=== PATIENT | female | born 1935 | race Caucasian/White ===

== ENCOUNTER 2016-09-30 11:05 | Inpatient (IN) | payer OTHER ==
[2016-09-30 11:15] VITALS: BMI 25.2
--- NOTE | 2016-09-30 11:27 | DR.GENAD ---
HPI - HPI Comment HPI Comment: PATIENT WENT TO HER KITCHEN AND ALMOST FAINTED.. SHE IA WEAK AND DIZZINESS. TOOK MORNING MEDS. - Complaint/Symptoms Chief Complaint Doctors Comments: WEAKNESS, DIZZINESS, NEAR SYNCOPAL EPISODES SHORTLY BEFORE COMING. - Nurses notes reviewed Nurses Notes Review: Yes - Source History Provided: Patient, Family Member, EMS - Mode of Arrival Mode of Arrival: Stretcher - Timing Came on: Suddenly - Duration Duration: Constant Duration: Minutes - Severity Severity: Moderate PMH - PMH Past Medical History: Anemia, Arthritis, Coronary Artery Disease, Diabetes, Hypertension, Hypothyroidism Past Surgical History: Yes Surgical History: Angioplasty/Stents, Appendectomy, Bowel Resection, Cholecystectomy - Family History Family Medical History: Diabetes Mellitus, [place], Coronary Artery Disease, Heart Failure, Hypertension - Social History Do you use any recreational Drugs:: No ROS - Review of Systems Constitutional: Weakness, Fatigue. negative: Chills, Fever Eyes: No Symptoms Reported ENTM: No Symptoms Reported Respiratoy: No Symptoms Reported Cardiovascular: No Symptoms Reported, Syncope (NEAR SYNCOPE) Gastrointestinal/Abdominal: No Symptoms Reported Genitourinary: No Symptoms Reported Neurological: No Symptoms Reported, Weakness, Dizziness. negative: Headache Musculoskeletal: Back Pain, Muscle Pain Integumentary: Dryness Hematologic/Lymphatic: No Symptoms Reported Endocrine: No Symptoms Reported All Other Systems: Reviewed and Negative PE - Vital Signs Vitals: Temperature 97.6 F Pulse Rate 82 Respiratory Rate 18 Blood Pressure [Left Arm] 141/69 Blood Pressure [Right Arm] 200/90 Blood Pressure 103/59 O2 Sat by Pulse Oximetry 98 - General Limitations: No Limitations General Appearance: Alert - Head Head Exam: Normal Inspection - Eyes Eye exam: Normal Appearance - ENT ENT Exam: Normal External Ear Exam External Ear Exam: Normal External Inspection TM/Canal Exam: Bilateral Normal Nose Exam: Normal Nose Exam Mouth Exam: Normal Inspection Throat Exam: Normal Inspection - Neck Neck Exam: Trachea Midline - Chest Chest Inspection: Symmetric Chest Wall Rise - Respiratory Respiratory Exam: Normal Lung Sounds Bilat Respiratory Exam: Bilateral Rhonchi, Lower Rhonchi - Cardiovascular Cardiovascular Exam: Regular Rate, Normal Rhythm, Normal Heart Sounds - Abdominal Exam Abdominal Exam: Normal Bowel Sounds, Soft. negative: Tenderness - Extremities Extremities Exam: Normal Inspection - Back Back Exam: Normal Inspection - Neurologic Neurological Exam: Alert, Oriented X3, CN II-XII Intact, Reflexes Normal. negative: Motor Sensory Deficit - Psychiatric Psychiatric Exam: Anxious - Skin Skin Exam: Normal Color MDM - Additional Information Additional Information Obtained From: Family - Differential Diagnosis Differential Diagnosis: ORTHOSTATIC HYPOTENSION, DEHYDRATION Course - Treatment Treatment: SEE ORDERS - Education/Counseling Education/Counseling: Patient, Family, Education Educated On: Treatment, Diagnosis, Needs for Follow Up ROR - Labs Reviewed Laboratory Results Reviewed?: Yes Result Diagrams: 10/01/16 05:23 10/01/16 05:23 - XRAY XRAY Interpreted by: Radiologist XRAY Findings: REPORT DISCUSS WITH PATIENT AND HER SON - EKG Rhythm: NSR (EKG NOTED) - Diagnosis Discharge Problem: Orthostatic hypotension, Dehydration - Discharge Plan Disposition: ADMITTED INPATIENT Condition: Stable - Follow ups/Referrals - Instructions
[2016-09-30] MEDS ORDERED: NS 1000 ML 1,000 ML ONE (11:29)
[2016-09-30] MEDS ORDERED: NS 1000 ML 1,000 ML IV ONE (11:32)
[2016-09-30 11:54] LABS: BASOPHILS % (AUTO) 0.4 % (0.2-1.0); EOSINOPHILS # (AUTO) 0.1 x10^3/uL (0.0-0.2); HEMATOCRIT 32.6 % (36.0-47.0); HEMOGLOBIN 10.8 g/dL (12.0-16.0); LYMPHOCYTES # (AUTO) 1.4 X10^3/uL (1.3-2.9); LYMPHOCYTES % (AUTO) 25.1 % (21.0-51.0); MEAN CORPUSCULAR HEMOGLOBIN 28.3 pg (27.0-34.0); MEAN CORPUSCULAR HGB CONC 33.2 g/dL (33.0-35.0); MEAN CORPUSCULAR VOLUME 85.3 fL (80.0-100.0); MEAN PLATELET VOLUME 9.4 fL (7.4-11.0); MONOCYTES # (AUTO) 0.4 x10^3/uL (0.3-0.8); MONOCYTES % (AUTO) 7.2 % (0.0-13.0); NEUTROPHILS # (AUTO) 3.8 x10^3/uL (2.2-4.8); NEUTROPHILS % (AUTO) 66.3 % (42.0-75.0); PLATELET COUNT 294 X10^3/uL (150.0-450.0); RED BLOOD COUNT 3.82 X10^6/uL (3.5-5.4); RED CELL DISTRIBUTION WIDTH 14.6 % (11.6-16.5); WHITE BLOOD COUNT 5.7 X10^3/uL (3.6-10.0)
[2016-09-30] MEDS ORDERED: TYLENOL 325 MG TAB PO ONE (12:02)
--- NOTE | 2016-09-30 12:26 | CT ---
HEAD CT WITHOUT IV CONTRAST CLINICAL INDICATION: Generalized weakness TECHNIQUE: Axial CT images from skull base to vertex without IV contrast.Dose reduction techniques i ncluding Automated Exposure Control (AEC) and adjustment of mA and kV were utlized. COMPARISON: None FINDINGS: Focal encephalomalacia in the left occipital region similar prior . Diffuse patchy and confluent whi te matter hypoattenuation with associated volume loss. There is no evidence of acute infarction, int racranial hemorrhage, mass or mass effect, or abnormal extra-axial collection. The density of the la rger dural venous sinuses is normal. Age-related, ex-vacuo dilatation of the ventricles and sulci. T he skull base and calvarium are normal. The included paranasal sinuses and mastoid air cells are pre dominantly clear. IMPRESSION: 1. No acute intracranial abnormality. If there is definite, focal, acute neurologic deficit, MRI wit h diffusion-weighted imaging would be more sensitive for detection of acute stroke. 2. Chronic microangiopathic changes and ex vacuo dilatation of the ventricles and sulci. Focal encep halomalacia in the left occipital lobe is unchanged from prior. Reported By:
[2016-09-30 12:42] LABS: BLOOD UREA NITROGEN 48 mg/dL (7-18); CALCIUM 8.9 mg/dL (8.5-10.1); CARBON DIOXIDE 22.4 mmol/L (21-32); CHLORIDE 104 mmol/L (98-107); CREATININE 1.84 mg/dL (0.55-1.02); GLUCOSE 110 mg/dL (65-99); SODIUM 139 mmol/L (136-145); TROPONIN I 0.03 ng/mL (0-1.5); eGFR BLACK RACES 34 (>60); eGFR NON BLACK RACES 28 (>60)
[2016-09-30 12:46] LABS: ALANINE AMINOTRANSFERASE 20 Units/L (12-78); ALBUMIN 3.5 g/dL (3.4-5.0); ALKALINE PHOSPHATASE 26 Units/L (46-116); ASPARTATE AMINO TRANSFERASE 20 Units/L (15-37); CKMB % 5.2 % (<4); CREATINE KINASE 31 Units/L (26-192); CREATINE KINASE MB 1.6 ng/mL (0-4.0); TOTAL PROTEIN 6.6 g/dL (6.4-8.2)
--- NOTE | 2016-09-30 14:06 | RAD ---
HISTORY: Generalized weakness Study: Single view of the chest. Comparison: 09/15/2016 Findings: The cardiomediastinal silhouette is normal. No focal consolidations, pleural effusions or pneumothor ax. Osseous structures demonstrate no acute abnormality. IMPRESSION: 1. No acute cardiopulmonary process. Reported By:
[2016-09-30 16:17] LABS: BILIRUBIN,URINE NEGATIVE (NEGATIVE); BLOOD/HEMOGLOBIN,URINE NEGATIVE (NEGATIVE); GLUCOSE, URINE NEGATIVE (NEGATIVE); KETONES,URINE NEGATIVE (NEGATIVE); LEUKOCYTE ESTERASE ,URINE 1+ (NEGATIVE); NITRITES,URINE NEGATIVE (NEGATIVE); PROTEIN,URINE NEGATIVE (NEGATIVE); UROBILINOGEN,URINE NORMAL (NORMAL)
[2016-09-30 16:28] LABS: APPEARANCE,URINE CLEAR (CLEAR); COLOR,URINE YELLOW (YELLOW)
[2016-09-30 16:31] LABS: AMORPHOUS SEDIMENT,UR TRACE /HPF (NEGATIVE); BACTERIA,URINE TRACE /HPF (NEGATIVE); RBC,URINE RARE /HPF (NEGATIVE); SQUAMOUS EPITHELIAL CELL,UR FEW /HPF (NEGATIVE)
[2016-09-30] MEDS: ZESTRIL TAB 40 MG PO SCH ×2 (18:12→20:13)
[2016-09-30] MEDS: ACTOS PO SCH (18:12)
[2016-09-30] MEDS: ASPIRIN EC 81 MG PO SCH ×2 (18:13→18:14)
[2016-09-30 18:19] LABS: CREATINE KINASE MB 1.8 ng/mL (0-4.0); TROPONIN I 0.03 ng/mL (0-1.5)
[2016-09-30] MEDS: PRAVACHOL PO SCH (20:13)
[2016-09-30] MEDS: NS 1000 ML 1,000 ML IV PRN (20:14)
[2016-10-01 01:16] LABS: CREATINE KINASE MB 1.4 ng/mL (0-4.0); TROPONIN I 0.05 ng/mL (0-1.5)
[2016-10-01] MEDS: NS 1000 ML 1,000 ML IV PRN ×3 (05:43→22:08)
[2016-10-01 06:28] LABS: BASOPHILS % (AUTO) 0.6 % (0.2-1.0); EOSINOPHILS # (AUTO) 0.1 x10^3/uL (0.0-0.2); EOSINOPHILS % (AUTO) 1.5 % (0.9-2.9); HEMATOCRIT 27.7 % (36.0-47.0); HEMOGLOBIN 9.3 g/dL (12.0-16.0); LYMPHOCYTES # (AUTO) 1.4 X10^3/uL (1.3-2.9); LYMPHOCYTES % (AUTO) 30.8 % (21.0-51.0); MEAN CORPUSCULAR HEMOGLOBIN 28.7 pg (27.0-34.0); MEAN CORPUSCULAR HGB CONC 33.6 g/dL (33.0-35.0); MEAN CORPUSCULAR VOLUME 85.4 fL (80.0-100.0); MEAN PLATELET VOLUME 9.5 fL (7.4-11.0); MONOCYTES # (AUTO) 0.4 x10^3/uL (0.3-0.8); NEUTROPHILS # (AUTO) 2.5 x10^3/uL (2.2-4.8); NEUTROPHILS % (AUTO) 57.1 % (42.0-75.0); PLATELET COUNT 246 X10^3/uL (150.0-450.0); RED BLOOD COUNT 3.25 X10^6/uL (3.5-5.4); RED CELL DISTRIBUTION WIDTH 14.9 % (11.6-16.5); WHITE BLOOD COUNT 4.5 X10^3/uL (3.6-10.0)
[2016-10-01 06:52] LABS: ALANINE AMINOTRANSFERASE 15 Units/L (12-78); ALKALINE PHOSPHATASE 23 Units/L (46-116); ASPARTATE AMINO TRANSFERASE 18 Units/L (15-37); BLOOD UREA NITROGEN 42 mg/dL (7-18); CALCIUM 8.1 mg/dL (8.5-10.1); CARBON DIOXIDE 23.3 mmol/L (21-32); CHLORIDE 111 mmol/L (98-107); COR CA(FOR HYPOALB) 8.9 mg/dL (8.5-10.1); CREATININE 1.64 mg/dL (0.55-1.02); GLUCOSE 95 mg/dL (65-99); SODIUM 144 mmol/L (136-145); TOTAL PROTEIN 5.6 g/dL (6.4-8.2); eGFR BLACK RACES 39 (>60); eGFR NON BLACK RACES 32 (>60)
[2016-10-01] MEDS: PLAVIX PO SCH (08:26)
[2016-10-01] MEDS: ZESTRIL TAB 40 MG PO SCH ×2 (08:26→22:11)
[2016-10-01] MEDS: SYNTHROID 100 mcg TAB PO SCH (08:27)
[2016-10-01] MEDS: ASPIRIN EC 81 MG PO SCH (08:27)
[2016-10-01] MEDS: ACTOS PO SCH (08:29)
[2016-10-01] MEDS: APRESOLINE TAB 25 MG PO SCH ×3 (10:21→22:11)
[2016-10-01] MEDS: PERCOCET TAB 5/325 MG PO PRN (19:02)
[2016-10-01] MEDS: MIRALAX POWDER (1 DOSE 17GM) PO SCH (22:09)
[2016-10-01] MEDS: PRAVACHOL PO SCH (22:11)
[2016-10-01] MEDS: XANAX PO PRN (22:11)
[2016-10-02 05:48] LABS: ALANINE AMINOTRANSFERASE 21 Units/L (12-78); ALBUMIN 3.2 g/dL (3.4-5.0); ALKALINE PHOSPHATASE 26 Units/L (46-116); ASPARTATE AMINO TRANSFERASE 15 Units/L (15-37); BLOOD UREA NITROGEN 39 mg/dL (7-18); CALCIUM 8.5 mg/dL (8.5-10.1); CHLORIDE 113 mmol/L (98-107); COR CA(FOR HYPOALB) 9.1 mg/dL (8.5-10.1); CREATININE 1.44 mg/dL (0.55-1.02); GLUCOSE 95 mg/dL (65-99); SODIUM 146 mmol/L (136-145); TOTAL PROTEIN 6.1 g/dL (6.4-8.2); eGFR BLACK RACES 45 (>60); eGFR NON BLACK RACES 37 (>60)
[2016-10-02 05:52] LABS: BASOPHILS % (AUTO) 0.8 % (0.2-1.0); EOSINOPHILS # (AUTO) 0.1 x10^3/uL (0.0-0.2); EOSINOPHILS % (AUTO) 2.2 % (0.9-2.9); HEMATOCRIT 27.4 % (36.0-47.0); HEMOGLOBIN 9.3 g/dL (12.0-16.0); LYMPHOCYTES # (AUTO) 1.7 X10^3/uL (1.3-2.9); LYMPHOCYTES % (AUTO) 31.4 % (21.0-51.0); MEAN CORPUSCULAR HEMOGLOBIN 29.1 pg (27.0-34.0); MEAN CORPUSCULAR VOLUME 85.8 fL (80.0-100.0); MEAN PLATELET VOLUME 9.9 fL (7.4-11.0); MONOCYTES # (AUTO) 0.5 x10^3/uL (0.3-0.8); MONOCYTES % (AUTO) 8.7 % (0.0-13.0); NEUTROPHILS # (AUTO) 3.2 x10^3/uL (2.2-4.8); NEUTROPHILS % (AUTO) 56.9 % (42.0-75.0); PLATELET COUNT 246 X10^3/uL (150.0-450.0); WHITE BLOOD COUNT 5.6 X10^3/uL (3.6-10.0)
[2016-10-02] MEDS: NS 1000 ML 1,000 ML IV PRN ×3 (06:11→17:11)
[2016-10-02] MEDS: APRESOLINE TAB 25 MG PO SCH ×3 (06:12→21:15)
--- NOTE | 2016-10-02 07:41 | RAD ---
Acute abdominal series Indication: Dehydration with weakness Comparison: The none available Findings: The trachea is midline. The cardiac silhouette is unremarkable. The extensive calcification of the mitral valve is noted. The right chest wall MediPort has its tip terminating within the lower SVC. T he lungs are clear without focal infiltrate or effusion. The bony thorax is unremarkable. Flat and upright evaluation of the abdomen demonstrates a normal bowel gas pattern. No pathological soft tissue mass or calcification can be observed. The bony structures are grossly intact. There i s moderate dextroscoliosis of the lumbar spine with multilevel moderate to severe spondylosis and fa cet arthropathy. Previous cholecystectomy is noted. Multiple surgical clips are noted within the pel vis. Previous both lower left hip arthroplasty is noted in place. Advanced calcified atherosclerotic disease is also noted within the pelvis. Calcification of the splenic artery is also noted. IMPRESSION: 1. No acute cardiopulmonary disease. 2. No evidence for acute abdominal pathology identified. Reported By:
[2016-10-02] MEDS: PLAVIX PO SCH (08:30)
[2016-10-02] MEDS: PERCOCET TAB 5/325 MG PO PRN ×2 (08:30→18:16)
[2016-10-02] MEDS: ACTOS PO SCH (08:30)
[2016-10-02] MEDS: ASPIRIN EC 81 MG PO SCH (08:30)
[2016-10-02] MEDS: SYNTHROID 100 mcg TAB PO SCH (08:30)
[2016-10-02] MEDS: ZESTRIL TAB 40 MG PO SCH ×2 (08:31→21:15)
[2016-10-02] MEDS ORDERED: TOPROL XL PO ONE (10:20)
[2016-10-02] MEDS: TOPROL XL PO SCH (10:26)
[2016-10-02] MEDS: NEURONTIN CAP 300 MG PO SCH ×3 (10:26→21:15)
[2016-10-02] MEDS: XANAX PO PRN (18:16)
[2016-10-02] MEDS: MIRALAX POWDER (1 DOSE 17GM) PO SCH (21:14)
[2016-10-02] MEDS: PRAVACHOL PO SCH (21:15)
[2016-10-03] MEDS: NS 1000 ML 1,000 ML IV PRN ×2 (00:20→09:30)
[2016-10-03 05:05] LABS: BLOOD UREA NITROGEN 30 mg/dL (7-18); CARBON DIOXIDE 24.4 mmol/L (21-32); CHLORIDE 114 mmol/L (98-107); CREATININE 1.24 mg/dL (0.55-1.02); GLUCOSE 78 mg/dL (65-99); SODIUM 145 mmol/L (136-145); eGFR BLACK RACES 53 (>60); eGFR NON BLACK RACES 44 (>60)
[2016-10-03 05:30] LABS: BASOPHILS % (AUTO) 0.8 % (0.2-1.0); EOSINOPHILS # (AUTO) 0.1 x10^3/uL (0.0-0.2); EOSINOPHILS % (AUTO) 3.2 % (0.9-2.9); HEMATOCRIT 22.6 % (36.0-47.0); HEMOGLOBIN 7.6 g/dL (12.0-16.0); LYMPHOCYTES # (AUTO) 1.5 X10^3/uL (1.3-2.9); LYMPHOCYTES % (AUTO) 35.4 % (21.0-51.0); MEAN CORPUSCULAR HGB CONC 33.6 g/dL (33.0-35.0); MEAN CORPUSCULAR VOLUME 86.1 fL (80.0-100.0); MEAN PLATELET VOLUME 9.8 fL (7.4-11.0); MONOCYTES # (AUTO) 0.4 x10^3/uL (0.3-0.8); MONOCYTES % (AUTO) 9.7 % (0.0-13.0); NEUTROPHILS # (AUTO) 2.2 x10^3/uL (2.2-4.8); NEUTROPHILS % (AUTO) 50.9 % (42.0-75.0); PLATELET COUNT 208 X10^3/uL (150.0-450.0); RED BLOOD COUNT 2.63 X10^6/uL (3.5-5.4); RED CELL DISTRIBUTION WIDTH 14.8 % (11.6-16.5); WHITE BLOOD COUNT 4.4 X10^3/uL (3.6-10.0)
[2016-10-03] MEDS: APRESOLINE TAB 25 MG PO SCH ×3 (05:39→21:28)
[2016-10-03] MEDS: NEURONTIN CAP 300 MG PO SCH ×3 (05:39→21:28)
[2016-10-03 06:16] LABS: PLATELET MORPHOLOGY COMMENT NORMAL (NORMAL)
[2016-10-03 06:17] LABS: HYPOCHROMASIA SLIGHT
[2016-10-03] MEDS ORDERED: TOPROL XL PO ONE (08:45)
[2016-10-03] MEDS: TOPROL XL PO SCH (09:00)
[2016-10-03] MEDS: ZESTRIL TAB 40 MG PO SCH ×2 (09:00→20:35)
[2016-10-03] MEDS: SYNTHROID 100 mcg TAB PO SCH (09:00)
[2016-10-03] MEDS: PLAVIX PO SCH (09:02)
[2016-10-03] MEDS: ASPIRIN EC 81 MG PO SCH (09:03)
[2016-10-03] MEDS: ACTOS PO SCH (10:00)
[2016-10-03] MEDS: NS 1000 ML 1,000 ML IV SCH (10:01)
[2016-10-03] MEDS: PRAVACHOL PO SCH (20:35)
[2016-10-03] MEDS: MIRALAX POWDER (1 DOSE 17GM) PO SCH (20:35)
[2016-10-03] MEDS: XANAX PO PRN (22:41)
[2016-10-03] MEDS: PERCOCET TAB 5/325 MG PO PRN (22:41)
[2016-10-04 05:24] LABS: EOSINOPHILS # (AUTO) 0.2 x10^3/uL (0.0-0.2); EOSINOPHILS % (AUTO) 3.9 % (0.9-2.9); HEMATOCRIT 24.4 % (36.0-47.0); HEMOGLOBIN 8.2 g/dL (12.0-16.0); LYMPHOCYTES # (AUTO) 1.6 X10^3/uL (1.3-2.9); LYMPHOCYTES % (AUTO) 36.9 % (21.0-51.0); MEAN CORPUSCULAR HEMOGLOBIN 29.1 pg (27.0-34.0); MEAN CORPUSCULAR HGB CONC 33.4 g/dL (33.0-35.0); MEAN CORPUSCULAR VOLUME 86.9 fL (80.0-100.0); MONOCYTES # (AUTO) 0.4 x10^3/uL (0.3-0.8); NEUTROPHILS # (AUTO) 2.1 x10^3/uL (2.2-4.8); NEUTROPHILS % (AUTO) 49.2 % (42.0-75.0); PLATELET COUNT 220 X10^3/uL (150.0-450.0); RED BLOOD COUNT 2.81 X10^6/uL (3.5-5.4); RED CELL DISTRIBUTION WIDTH 14.6 % (11.6-16.5); WHITE BLOOD COUNT 4.3 X10^3/uL (3.6-10.0)
[2016-10-04 05:33] LABS: ALANINE AMINOTRANSFERASE 17 Units/L (12-78); ALBUMIN 2.9 g/dL (3.4-5.0); ALKALINE PHOSPHATASE 24 Units/L (46-116); ASPARTATE AMINO TRANSFERASE 16 Units/L (15-37); BLOOD UREA NITROGEN 29 mg/dL (7-18); CALCIUM 8.4 mg/dL (8.5-10.1); CARBON DIOXIDE 24.3 mmol/L (21-32); CHLORIDE 111 mmol/L (98-107); COR CA(FOR HYPOALB) 9.3 mg/dL (8.5-10.1); CREATININE 1.37 mg/dL (0.55-1.02); GLUCOSE 81 mg/dL (65-99); SODIUM 144 mmol/L (136-145); TOTAL PROTEIN 5.5 g/dL (6.4-8.2); eGFR BLACK RACES 48 (>60); eGFR NON BLACK RACES 39 (>60)
[2016-10-04] MEDS: NEURONTIN CAP 300 MG PO SCH ×2 (06:13→21:08)
[2016-10-04] MEDS: APRESOLINE TAB 25 MG PO SCH ×3 (06:13→21:09)
[2016-10-04] MEDS ORDERED: TOPROL XL PO ONE (07:26)
[2016-10-04] MEDS: ZESTRIL TAB 40 MG PO SCH ×2 (08:47→21:09)
[2016-10-04] MEDS: ASPIRIN EC 81 MG PO SCH (08:47)
[2016-10-04] MEDS: SYNTHROID 100 mcg TAB PO SCH (08:47)
[2016-10-04] MEDS: ACTOS PO SCH (08:48)
[2016-10-04] MEDS: TOPROL XL PO SCH (08:48)
[2016-10-04] MEDS: PLAVIX PO SCH (08:49)
[2016-10-04] MEDS ORDERED: [UNRECOGNIZED DRUG - OTHER] PO SCH (09:30)
[2016-10-04] MEDS: PRAVACHOL PO SCH (21:07)
[2016-10-04] MEDS: MIRALAX POWDER (1 DOSE 17GM) PO SCH (21:10)
[2016-10-04] MEDS: NS 1000 ML 1,000 ML IV SCH (21:10)
[2016-10-05 05:31] LABS: ALANINE AMINOTRANSFERASE 25 Units/L (12-78); ALKALINE PHOSPHATASE 25 Units/L (46-116); ASPARTATE AMINO TRANSFERASE 16 Units/L (15-37); BLOOD UREA NITROGEN 29 mg/dL (7-18); CALCIUM 8.3 mg/dL (8.5-10.1); CARBON DIOXIDE 22.9 mmol/L (21-32); CHLORIDE 111 mmol/L (98-107); COR CA(FOR HYPOALB) 9.1 mg/dL (8.5-10.1); CREATININE 1.46 mg/dL (0.55-1.02); GLUCOSE 75 mg/dL (65-99); SODIUM 146 mmol/L (136-145); TOTAL PROTEIN 5.6 g/dL (6.4-8.2); eGFR BLACK RACES 44 (>60); eGFR NON BLACK RACES 37 (>60)
[2016-10-05] MEDS: APRESOLINE TAB 25 MG PO SCH ×4 (06:08→22:16)
[2016-10-05] MEDS: NEURONTIN CAP 300 MG PO SCH ×3 (06:08→22:16)
[2016-10-05 06:27] LABS: BASOPHILS % (AUTO) 0.8 % (0.2-1.0); EOSINOPHILS # (AUTO) 0.1 x10^3/uL (0.0-0.2); HEMATOCRIT 24.8 % (36.0-47.0); HEMOGLOBIN 8.3 g/dL (12.0-16.0); LYMPHOCYTES # (AUTO) 1.6 X10^3/uL (1.3-2.9); LYMPHOCYTES % (AUTO) 35.1 % (21.0-51.0); MEAN CORPUSCULAR HEMOGLOBIN 28.8 pg (27.0-34.0); MEAN CORPUSCULAR HGB CONC 33.6 g/dL (33.0-35.0); MEAN CORPUSCULAR VOLUME 85.7 fL (80.0-100.0); MONOCYTES # (AUTO) 0.4 x10^3/uL (0.3-0.8); MONOCYTES % (AUTO) 9.6 % (0.0-13.0); NEUTROPHILS # (AUTO) 2.3 x10^3/uL (2.2-4.8); NEUTROPHILS % (AUTO) 51.5 % (42.0-75.0); PLATELET COUNT 231 X10^3/uL (150.0-450.0); RED BLOOD COUNT 2.89 X10^6/uL (3.5-5.4); RED CELL DISTRIBUTION WIDTH 14.9 % (11.6-16.5); WHITE BLOOD COUNT 4.6 X10^3/uL (3.6-10.0)
[2016-10-05] MEDS ORDERED: TOPROL XL PO ONE (08:48)
[2016-10-05] MEDS: MINOXIDIL PO SCH (09:02)
[2016-10-05] MEDS: ASPIRIN EC 81 MG PO SCH (09:03)
[2016-10-05] MEDS: TOPROL XL PO SCH (09:03)
[2016-10-05] MEDS: ACTOS PO SCH (09:04)
[2016-10-05] MEDS: PLAVIX PO SCH (09:04)
[2016-10-05] MEDS: ZESTRIL TAB 40 MG PO SCH ×2 (09:04→22:16)
[2016-10-05] MEDS: SYNTHROID 100 mcg TAB PO SCH (09:04)
[2016-10-05] MEDS ORDERED: PERCOCET TAB 5/325 MG PO PRN (09:27)
[2016-10-05] MEDS ORDERED: MINOXIDIL PO ONE (09:45)
[2016-10-05] MEDS: PERCOCET TAB 5/325 MG PO PRN ×2 (11:02→19:17)
[2016-10-05] MEDS: XANAX PO PRN ×2 (11:02→22:16)
[2016-10-05] MEDS: MIRALAX POWDER (1 DOSE 17GM) PO SCH (22:15)
[2016-10-05] MEDS: PRAVACHOL PO SCH (22:16)
[2016-10-06] MEDS: NEURONTIN CAP 300 MG PO SCH (05:49)
[2016-10-06] MEDS: NS 1000 ML 1,000 ML IV SCH ×2 (05:49→10:24)
[2016-10-06] MEDS: APRESOLINE TAB 25 MG PO SCH (05:49)
[2016-10-06] MEDS: PERCOCET TAB 5/325 MG PO PRN (05:50)
[2016-10-06 08:16] VITALS: BP 110/53
[2016-10-06] MEDS ORDERED: TOPROL XL PO ONE (09:35)
[2016-10-06] MEDS: ASPIRIN EC 81 MG PO SCH (10:21)
[2016-10-06] MEDS: ZESTRIL TAB 40 MG PO SCH (10:21)
[2016-10-06] MEDS: SYNTHROID 100 mcg TAB PO SCH (10:22)
[2016-10-06] MEDS: MINOXIDIL PO SCH (10:22)
[2016-10-06] MEDS: PLAVIX PO SCH (10:22)
[2016-10-06] MEDS: ACTOS PO SCH (10:23)
[2016-10-06] MEDS: TOPROL XL PO SCH (10:23)
[2016-10-06] MEDS ORDERED: HEPARIN SODIUM INJ 5000 UNITS IVP ONE (11:40)
== END 2016-10-06 12:55 | disposition home or self-care (01) | DRG 312 ==
LOC: ER 11:05 → MED/SURG 15:29 → OBSVTOIN 10-02 09:00
PROVIDERS: ADMIT Internal Medicine; ATTEND Obstetrics & Gynecology Obstetrics
DX: I95.1 Orthostatic hypotension (principal); E86.0 Dehydration; R53.1 Weakness; I10 Essential (primary) hypertension; R55 Syncope and collapse; R42 Dizziness and giddiness; M13.89 Other specified arthritis, multiple sites; I25.10 Atherosclerotic heart disease of native coronary artery without angina pectoris; E03.8 Other specified hypothyroidism
CPT/HCPCS: 36415; 70450; 71010; 74022; 80048; 80053; 81001; 82550; 82553; 84484; 85025; 85610; 85730; 93005; 93010; 94760; 96365; 96367; 99284; G0378

== ENCOUNTER 2016-10-20 13:20 | Emergency (ER) | payer OTHER ==
[2016-10-20] MEDS ORDERED: NS 1000 ML 1,000 ML ONE (13:37)
[2016-10-20] MEDS ORDERED: PERCOCET TAB 5/325 MG PO STA (13:45)
[2016-10-20 13:47] VITALS: BMI 28.2
--- NOTE | 2016-10-20 13:47 | DR.GENAD ---
HPI - PCP Primary Care Physician: kellee SIERRA Comment HPI Comment: She accidentally took her hydralazine twice and her bp was below 90 just after taking the second dose so she was transported here; she feels tired and has a headache but denies cp, sob, palpitations, abd pain, n/v/d. - Complaint/Symptoms Chief Complaint:: pt bp was low and pt took blood pressure meds without knowing - Source History Provided: Patient - Mode of Arrival Mode of Arrival: EMS - Timing Onset of Chief Complaint: 10/20/16 PMH - PMH Past Medical History: Yes Past Medical History: Anemia, Arthritis, Coronary Artery Disease, Diabetes, Hypertension, Hypothyroidism Past Surgical History: Yes Surgical History: Angioplasty/Stents, Appendectomy, Bowel Resection, Cholecystectomy - Family History History of Family Medical Conditions: Yes Family Medical History: Diabetes Mellitus, [place], Coronary Artery Disease, Heart Failure, Hypertension - Social History Does patient currently use any type of tobacco product: No Have you used tobacco products in the last 12 months: No Type of Tobacco Use: None Does any household member use tobacco: No Alcohol Use: None Do you use any recreational Drugs:: No Lives With: Family Lives Where: Home - infectious screening In the last 2 months have you had wt loss of >10#?: NO Have you had fever, night sweats or hemotysis?: No Have you traveled outside the country in the last 6 months?: No Isolation: Standard ROS - Review of Systems Constitutional: No Symptoms Reported Respiratoy: No Symptoms Reported Cardiovascular: No Symptoms Reported Gastrointestinal/Abdominal: No Symptoms Reported Neurological: Weakness Musculoskeletal: Joint Pain, Muscle Pain Hematologic/Lymphatic: No Symptoms Reported PE - Vital Signs Vitals: Temperature 98 F Pulse Rate [Right Brachial] 69 Pulse Rate 72 Respiratory Rate 18 Blood Pressure [Left Arm] 95/47 Blood Pressure [Right Arm] 196/84 Blood Pressure 102/47 O2 Sat by Pulse Oximetry 96 - General Limitations: No Limitations General Appearance: Alert, In No Apparent Distress - Head Head Exam: Normal Inspection - Neck Neck Exam: Normal Inspection - Chest Chest Inspection: Normal Inspection - Respiratory Respiratory Exam: Bilateral Clear to Auscultation - Cardiovascular Cardiovascular Exam: Regular Rate, Normal Rhythm - Abdominal Exam Abdominal Exam: Normal Inspection, Normal Bowel Sounds, Soft - Extremities Extremities Exam: Normal Inspection - Neurologic Neurological Exam: Alert, Oriented X3 - Psychiatric Psychiatric Exam: Normal Affect Course - Reevaluation 1st: Improved (after fluids) - Diagnosis Discharge Problem: Hypotension Qualifiers: Hypotension type: hypotension due to drug Qualified Code(s): I95.2 - Hypotension due to drugs - Discharge Plan Disposition: 01 HOME, SELF-CARE Condition: Stable - Follow ups/Referrals Follow ups/Referrals: NFD,None [Primary Care Provider] - 3 days - Instructions Instructions: Hypotension, [id number] Additional Instructions: do not take night time blood pressure medications resume normal medication regimen in the morning
[2016-10-20] MEDS ORDERED: PERCOCET TAB 5/325 MG ONE (14:17)
[2016-10-20 16:52] VITALS: BP 110/60
== END 2016-10-20 16:52 | disposition home or self-care (01) ==
LOC: ER 13:20
DX: I95.2 Hypotension due to drugs (principal)
CPT/HCPCS: 96365; 99282; 99283

== ENCOUNTER 2020-09-04 16:06 | Inpatient (IN) ==
--- NOTE | 2020-09-04 16:30 | DR.EXTPAIN ---
HPI - Time seen Time seen: 16:24 - PCP Primary Care Physician: ANNA MARIE - HPI Comment HPI Comment: Patient brougt to the emergency room with lethargy with swelling and blisters with clear drainage on her feet. Patient states she do not remember to most of the questions. She denies chest pain, cold or cough. She is a patient of Dr. Thrasher and she denies tobacco or alcohol usage. EMS states family member stats patient was able to walk earlier but she has gone down and is unable to walk. EMS relates patient's legs and feet are cold and her heart rate was slow. Patient states she lives alone and that her son recently . States she is unable to get up to cook or take care of herself at home. - Complaint/Symptoms Chief Complaint:: EMS STATES [facility] C/O IS PT HAS LE EDEMA, COLD AND PAIN. NOTED BILATERAL LOWER BLISTERS THAT HAVE BURST TO BILAT LE. LT FOOT NOTED TO HAVE SCABBED AREA AND TOES TO BE BLUE/PURPLE IN COLOR. OPEN WOUNDS TO RT LE. - Nurses notes reviewed Nurses Notes Review: Yes - Source History Provided: Patient, EMS - Mode of arrival Mode of Arrival: EMS - Timing Onset of Chief Complaint: 09/03/20 - Associated signs and symptoms Associated Signs and Symptoms: Pain, Swelling PMH - PMH Past Medical History: Yes Past Medical History: Coronary Artery Disease, Hypertension, Diabetes, Hypothyroidism, Anemia, Arthritis Past Medical History Comment: A FLUTTER Past Surgical History: Yes Surgical History: Angioplasty/Stents, Appendectomy, Bowel Resection, Cholecystectomy Past Surgical History Comment: PAC - Family History History of Family Medical Conditions: Yes Family Medical History: Diabetes Mellitus, [place], Coronary Artery Disease, Heart Failure, Hypertension - Social History Does any household member use tobacco: No Alcohol Use: None Do you use any recreational Drugs:: No Lives With: Family Lives Where: Home - Travel Risk Coronavirus risk:travel/contact w/high risk person: No Has patient experienced Coronavirus symptoms: No - infectious screening In the last 2 months have you had wt loss of >10#?: NO Have you had fever, night sweats or hemotysis?: No Have you traveled outside the country in the last 6 months?: No Isolation: Standard ROS - Review of Systems Constitutional: No Symptoms Reported, Weakness Eyes: No Symptoms Reported ENTM: No Symptoms Reported Respiratoy: No Symptoms Reported Cardiovascular: No Symptoms Reported, Edema (swelling in feet with clear watery discharge from blisters on dorsal foot). negative: See HPI, Chest Pain, Palpitations, Syncope, Cyanosis, Skin Mottling, Other Gastrointestinal/Abdominal: No Symptoms Reported. negative: See HPI, Abdominal Pain, Constipation, Diarrhea, Nausea, Vomiting, Food Intolerance, Other Genitourinary: No Symptoms Reported Neurological: No Symptoms Reported, Problems Walking (family relates patient not walkingn) Musculoskeletal: No Symptoms Reported, Foot (water blisters with drainage) Integumentary: No Symptoms Reported, Lesions Hematologic/Lymphatic: No Symptoms Reported Endocrine: No Symptoms Reported Psychiatric: No Symptoms Reported. negative: See HPI, Anxiety, Depression, Hallucinations, Excessive crying, Suicidal, Other PE - General Limitations: Altered Mental Status (patient answers "I dont remember to most questions") General Appearance: Lethargic, In Distress (slight) - Head Head Exam: Normal Inspection, Atraumatic, Normocephalic - Eyes Eye exam: Normal Appearance, PERRL, EOMI. negative: Scleral Icterus, Conjunctival Injection, Nystagmus, Miosis, Mydrasis, Periorbital Swelling, Periorbital Tenderness, Other - ENT ENT Exam: Normal Exam, Normal Oropharynx, Normal External Ear Exam, Mucous Membranes Moist, TM's Normal Bilaterally - Neck Neck Exam: Normal Inspection, Full ROM, Trachea Midline. negative: Tenderness, Meningismus, Lymphadenopathy, Thyromegaly, Other - Chest Chest Inspection: Normal Inspection, Symmetric Chest Wall Rise - Respiratory Respiratory Exam: Normal Lung Sounds Bilat Respiratory Exam: Bilateral Clear to Auscultation - Cardiovascular Cardiovascular Exam: Regular Rate, Normal Rhythm, Normal Heart Sounds, Systolic Murmur - Abdominal Exam Abdominal Exam: Normal Inspection, Normal Bowel Sounds, Soft Abdominal Tenderness: negative: RUQ, RLQ, LUQ, LLQ, Epigastrium, Suprapubic, Diffuse, Mild, Moderate, Severe, Other - Extremities Extremities Exam: Full ROM. negative: Normal Inspection, Normal Capillary Refill (decreased capillary refill; legs and feet extremely cold; blisters on right foot with watery drainage; left foot with 4 cm area blister with erythemma), Calf Tenderness - Upper Extremities Shoulder Exam: Normal Inspection, Full ROM. negative: Tenderness, Swelling, Abrasion, Laceration, Ecchymosis, Deformity, Crepitus, Dislocation, Erythema, Tenderness over AC Joint, Other Arm Exam: Normal Inspection, Full ROM. negative: Tenderness, Swelling, Abrasion, Laceration, Ecchymosis, Deformity, Crepitus, Erythema, Other Elbow Exam: Normal Inspection, Full ROM. negative: Tenderness, Swelling, Abrasion, Laceration, Ecchymosis, Deformity, Crepitus, Dislocation, Erythema, Effusion, Pain w/ pronation, Pain w/ Spuination, Tenderness over Radial Head, Other Forearm Exam: Normal Inspection, Full ROM. negative: Tenderness, Swelling, Abrasion, Laceration, Ecchymosis, Deformity, Crepitus, Erythema, Dislocation, Other Hand Exam: Normal Inspection, Full ROM. negative: Tenderness, Swelling, Abrasion, Laceration, Ecchymosis, Skin Avulsion, Deformity, Crepitus, Erythema, Dislocation, Amputation, Nail Avulsion, Subungual Hematoma, Other Neuromotor Exam: Normal Exam Neurosensory Exam: Normal Exam Upper Ext. Vascular Exam: Radial Pulse (normal). Denies: Capillary Refill (decreased in toes) - Lower Extremities Hip/Pelvis Exam: Normal Inspection, Full ROM. negative: Tenderness, Swelling, Abrasion, Laceration, Ecchymosis, Deformity, Crepitus, Dislocation, Erythema, External Rotation, Internal Rotation, Shortening, Pelvis Stable, Other Upper Leg Exam: Normal Inspection, Full ROM Knee Exam: Normal Inspection, Full ROM. negative: Tenderness, Swelling, Abrasion, Laceration, Ecchymosis, Deformity, Crepitus, Dislocation, Erythema, Effusion, Anterior Drawer Sign, Posterior Draw Sign, Pain with Valgus, Laxity with Valgus, Pain with Varus, Knee Extension Intact, Other Lower Leg Exam: Swelling (both dorsal feet with blisters 1-2 cm with watery drainage from right foot; no palpable pulse in right foot.) Ankle Exam: Normal Inspection, Full ROM Foot/Toe Exam: Deformity. negative: Normal Inspection, Full ROM, Tenderness (contractures of toes) Neurovascular/Tendon Exam: Pulse Deficit (unable to feel pulse right foot), Extremity Cold to Touch. negative: Normal Capillary Refill (decreased in toes) Gait Exam: Not Tested/Not Observed - Back Back Exam: Normal Inspection, Full ROM - Neurological Neurological Exam: CN II-XII Intact, Reflexes Normal. negative: Oriented X3 (orientated to person), Normal Gait (gait not tested) - Psychiatric Psychiatric Exam: Normal Affect, Normal Mood - Skin Skin Exam: Intact, Pallor. negative: Warm (feet and legs cold to touch) Type of Lesion: negative: Rash, Abscess, Laceration, Foreign Body, Bite/Sting, Abrasion, Other Distribution: negative: Generalized, Involves Palms/Soles, Head, Face, Neck, Thorax, Chest, Back, Abdomen, Genitals, LUE, LLE, RUE, RLE, Other Description: negative: Size, Tenderness, Erythematous, Swelling, Macular, Papular, Vesicular, Blisters, Cofluent, Bullous, Petechial, Purpuric, Urticarial, Crusting, Discharge, Fluctuant, Indurated, Other - Vital Signs Vitals: Temperature 97.5 F Pulse Rate 49 Respiratory Rate 14 Blood Pressure [Left Arm] 189/77 Blood Pressure 101/58 O2 Sat by Pulse Oximetry 85 Course - Reevaluation 1st: Improved - Consultation Called: 19:53 Call Returned: 19:53 (Dr. Johnson to admit) - Education/Counseling Education/Counseling: Patient, Family Educated On: Treatment, Diagnosis, Needs for Follow Up ROR - Labs Reviewed Laboratory Results Reviewed?: Yes (All labs and x-ray results reviewed and discussed with pataient) Result Diagrams: 09/04/20 16:23 09/04/20 16:23 - XRAY XRAY Interpreted by: Radiologist (CXR: Interval development and progression of a bilateral airspace disease consistent with multilobar pneumonia. Heart enlarged.) - EKG Rate: 48 [place]: Normal Rhythm: SB Block: None Hypertrophy: None ST: Old, Ant, Infarct - Labs Reviewed Laboratory: WBC 12.3 X10^3/uL (3.6-10.0) H 09/04/20 16:23 RBC 2.49 X10^6/uL (3.5-5.4) L 09/04/20 16:23 Hgb 5.7 g/dL (12.0-16.0) L* 09/04/20 16:23 Hct 18.7 % (36.0-47.0) L* 09/04/20 16:23 MCV 75.2 fL (80.0-100.0) L 09/04/20 16:23 MCH 23.1 pg (27.0-34.0) L 09/04/20 16:23 MCHC 30.7 g/dL (33.0-35.0) L 09/04/20 16:23 RDW 18.8 % (11.6-16.5) H 09/04/20 16:23 Plt Count 294 X10^3/uL (150.0-450.0) 09/04/20 16:23 MPV 9.6 fL (7.4-11.0) 09/04/20 16:23 Neut % (Auto) 88.3 % (42.0-75.0) H 09/04/20 16:23 Lymph % (Auto) 7.2 % (21.0-51.0) L 09/04/20 16:23 [place] % (Auto) 4.5 % (0.0-13.0) 09/04/20 16:23 Eos % (Auto) 0.0 % (0.9-2.9) L 09/04/20 16:23 Baso % (Auto) 0 % (0.2-1.0) L 09/04/20 16:23 Neut # (Auto) 10.8 x10^3/uL (2.2-4.8) H 09/04/20 16:23 Lymph # (Auto) 0.9 X10^3/uL (1.3-2.9) L 09/04/20 16:23 [place] # (Auto) 0.6 x10^3/uL (0.3-0.8) 09/04/20 16:23 Eos # (Auto) 0.0 x10^3/uL (0.0-0.2) 09/04/20 16:23 Baso # (Auto) 0.0 X10^3/uL (0.0-0.1) 09/04/20 16:23 Absolute Nucleated RBC 1.7 /100WBC 09/04/20 16:23 PT 16.4 SECONDS (11.8-14.3) 09/04/20 17:03 INR Target Range - 09/04/20 17:03 INR 1.36 (0.8-1.3) H 09/04/20 17:03 APTT 37.5 SECONDS (22.9-36.5) H 09/04/20 17:03 PTT Comment - 09/04/20 17:03 D-Dimer 1.77 ug/ml (0.0-0.57) H* 09/04/20 17:03 Sodium 137 mmol/L (136-145) 09/04/20 16:23 Corrected Sodium 138 mmol/L (136-145) 09/04/20 16:23 Potassium 4.9 mmol/L (3.5-5.1) 09/04/20 16:23 Chloride 104 mmol/L (98-107) 09/04/20 16:23 Carbon Dioxide 20.5 mmol/L (21-32) L 09/04/20 16:23 BUN 55 mg/dL (7-18) H 09/04/20 16:23 Creatinine 3.81 mg/dL (0.55-1.02) H 09/04/20 16:23 Est GFR (MDRD) Af Amer 14 (>60) L 09/04/20 16:23 Est GFR (MDRD) Non-Af 12 (>60) L 09/04/20 16:23 Glucose 121 mg/dL (65-99) H 09/04/20 16:23 Lactic Acid 4.2 mmol/L (0.4-2.0) H 09/04/20 16:23 Calcium 8.0 mg/dL (8.5-10.1) L 09/04/20 16:23 Corrected Calcium 9.0 mg/dL (8.5-10.1) 09/04/20 16:23 Magnesium 2.3 mg/dL (1.7-2.9) 09/04/20 16:23 Total Bilirubin 0.60 mg/dL (0.2-1.0) 09/04/20 16:23 AST 66 Units/L (15-37) H 09/04/20 16:23 ALT 29 Units/L (12-78) 09/04/20 16:23 Alkaline Phosphatase 51 Units/L (46-116) 09/04/20 16:23 B-Natriuretic Peptide 4360 pg/mL (0-79) H* 09/04/20 16:23 Total Protein 6.1 g/dL (6.4-8.2) L 09/04/20 16:23 Albumin 2.8 g/dL (3.4-5.0) L 09/04/20 16:23 Globulin 3.3 g/dL (2.5-4.5) 09/04/20 16:23 Albumin/Globulin Ratio 0.8 Ratio (1.1-2.1) L 09/04/20 16:23 Specimen Type Catherized urine 09/04/20 18:45 Urine Color Yellow (YELLOW) 09/04/20 18:45 Urine Appearance Clear (CLEAR) 09/04/20 18:45 Urine pH 5.0 (5.0 - 8.0) 09/04/20 18:45 Ur Specific [place] 1.030 (1.000-1.030) 09/04/20 18:45 Urine Protein 4+ (NEGATIVE) 09/04/20 18:45 Urine Glucose (UA) Negative (NEGATIVE) 09/04/20 18:45 Urine Ketones Negative (NEGATIVE) 09/04/20 18:45 Urine Occult Blood Negative (NEGATIVE) 09/04/20 18:45 Urine Nitrite Negative (NEGATIVE) 09/04/20 18:45 Urine Bilirubin 2+ (NEGATIVE) 09/04/20 18:45 Urine Urobilinogen 1+ (NORMAL) 09/04/20 18:45 Ur Leukocyte Esterase 1+ (NEGATIVE) 09/04/20 18:45 Urine RBC 0-2 /HPF (0-3) 09/04/20 18:45 Urine WBC 3-5 /HPF (0-5) 09/04/20 18:45 Ur Squamous Epith Cells Few /HPF (NEGATIVE) 09/04/20 18:45 Amorphous Sediment 1+ /HPF (NEGATIVE) 09/04/20 18:45 Urine Bacteria 1+ /HPF (NEGATIVE) 09/04/20 18:45 Granular Casts Few /LPF (NEGATIVE) 09/04/20 18:45 Other Casts Few /LPF (NEGATIVE) 09/04/20 18:45 Ur Culture Indicated? No/not indicated 09/04/20 18:45 Urine Opiates Screen Negative (NEG=<300) 09/04/20 18:45 Urine Methadone Screen Negative (NEG=<300) 09/04/20 18:45 Ur Barbiturates Screen Negative (NEG=<200) 09/04/20 18:45 Ur Phencyclidine Scrn Negative (NEG=<25) 09/04/20 18:45 Ur Amphetamines Screen Negative (NEG=<1000) 09/04/20 18:45 U Benzodiazepines Scrn Positive (NEG=<200) A 09/04/20 18:45 Urine Cocaine Screen Negative (NEG=<300) 09/04/20 18:45 U Marijuana (THC) Screen Negative (NEG=<50) 09/04/20 18:45 SARS CoV-2 RNA Rapid ANGÉLICA Negative (NEGATIVE) 09/04/20 18:33 Opioid - Opioid Risk Tool Age (Jay box if 16-45): No History of Preadolescent Sexual Abuse: No Total: 0 Total Score Risk Category: Low Risk - Diagnosis Discharge Problem: Symptomatic anemia, PAOD (peripheral arterial occlusive disease), Hyperglycemia, Sinus bradycardia Bilateral pneumonia Qualifiers: Pneumonia type: due to unspecified organism Lung location: unspecified part of lung Qualified Code(s): J18.9 - Pneumonia, unspecified organism Congestive heart failure (CHF) Qualifiers: Heart failure chronicity: unspecified Chronic kidney disease (CKD) Qualifiers: Chronic kidney disease stage: stage 3 (moderate) - Discharge Plan Disposition: ADMITTED INPATIENT Condition: Stable - Follow ups/Referrals Follow ups/Referrals: PRAKASH THRASHER [Primary Care Provider] - 3 days - Instructions
[2020-09-04 16:45] LABS: BASOPHILS % (AUTO) 0 % (0.2-1.0); LYMPHOCYTES # (AUTO) 0.9 X10^3/uL (1.3-2.9); LYMPHOCYTES % (AUTO) 7.2 % (21.0-51.0); MEAN CORPUSCULAR HEMOGLOBIN 23.1 pg (27.0-34.0); MEAN CORPUSCULAR HGB CONC 30.7 g/dL (33.0-35.0); MEAN CORPUSCULAR VOLUME 75.2 fL (80.0-100.0); MEAN PLATELET VOLUME 9.6 fL (7.4-11.0); MONOCYTES # (AUTO) 0.6 x10^3/uL (0.3-0.8); MONOCYTES % (AUTO) 4.5 % (0.0-13.0); NEUTROPHILS # (AUTO) 10.8 x10^3/uL (2.2-4.8); NEUTROPHILS % (AUTO) 88.3 % (42.0-75.0); PLATELET COUNT 294 X10^3/uL (150.0-450.0); RED BLOOD COUNT 2.49 X10^6/uL (3.5-5.4); RED CELL DISTRIBUTION WIDTH 18.8 % (11.6-16.5); WHITE BLOOD COUNT 12.3 X10^3/uL (3.6-10.0)
[2020-09-04 16:55] LABS: ALBUMIN 2.8 g/dL (3.4-5.0); CARBON DIOXIDE 20.5 mmol/L (21-32); CREATININE 3.81 mg/dL (0.55-1.02); MAGNESIUM 2.3 mg/dL (1.7-2.9); TOTAL PROTEIN 6.1 g/dL (6.4-8.2)
--- NOTE | 2020-09-04 16:59 | RAD ---
HISTORYChest painSTUDYAP chestCOMPARISONFeuary 2020FINDINGSThe heart is enlarged. There are bilateral areas of airspace disease involving right upper and lower lobes and left base. The left upper lung is relatively clear. Small pleural effusions may be present. Stable position of right subclavian injection port.IMPRESSIONInterval development and progression of a bilateral airspace disease consistent with multilobar pneumonia. The heart remains enlarged.Electronically signed by: TORRES HALLMAN (Sep 04, 2020 16:57:19)
[2020-09-04 17:02] LABS: HEMATOCRIT 18.7 % (36.0-47.0); HEMOGLOBIN 5.7 g/dL (12.0-16.0)
--- NOTE | 2020-09-04 17:03 | CT ---
HISTORYAMSSTUDYCT brain without IV contrastCOMPARISONNoneTECHNIQUEMultiple axial images of the brain were obtained without IV contrast. Dose reduction techniques including Automated Exposure Control (AEC) and adjustment of mA and kV were utilized.FINDINGSVisualized portions of the paranasal sinuses and mastoid air cells are clear. No calvarial fracture is seen. No acute intracranial hemorrhage or mass effect is seen. Prominent diffuse volume loss is seen in the brain with compensatory enlargement of the ventricular system.Mild chronic small vessel ischemic changes are seen in the periventricular white matter. Old lacunar infarct is seen in the right thalamus. Probable old small left occipital cortical CVA with encephalomalacia. No evidence of acute CVA. Atherosclerotic calcifications are seen in the distal ICAs and distal vertebral arteries.IMPRESSIONOld ischemic changes are seen without evidence of acute abnormality.Electronically signed by: Jason Guillen (Sep 04, 2020 17:01:19)
[2020-09-04 17:49] LABS: LACTIC ACID 4.2 mmol/L (0.4-2.0)
[2020-09-04] MEDS ORDERED: ROCEPHIN VIAL 1 GRAM 1 G in NS 100 ML IV + SPIKE MINIBAG* 100 ML IV ONE (18:09)
[2020-09-04] MEDS ORDERED: NS 100 ML IV + SPIKE MINIBAG* 100 ML IV ONE (18:35)
[2020-09-04] MEDS ORDERED: ROCEPHIN VIAL 1 GRAM ONE (18:35)
[2020-09-04] MEDS ORDERED: NS 1000 ML 1,000 ML ONE (18:38)
[2020-09-04 19:23] LABS: BILIRUBIN,URINE 2+ (NEGATIVE); BLOOD/HEMOGLOBIN,URINE NEGATIVE (NEGATIVE); GLUCOSE, URINE NEGATIVE (NEGATIVE); KETONES,URINE NEGATIVE (NEGATIVE); LEUKOCYTE ESTERASE ,URINE 1+ (NEGATIVE); NITRITES,URINE NEGATIVE (NEGATIVE); PROTEIN,URINE 4+ (NEGATIVE); UROBILINOGEN,URINE 1+ (NORMAL)
[2020-09-04 19:46] LABS: APPEARANCE,URINE CLEAR (CLEAR); BACTERIA,URINE 1+ /HPF (NEGATIVE); COLOR,URINE YELLOW (YELLOW); RBC,URINE 0-2 /HPF (0-3); SQUAMOUS EPITHELIAL CELL,UR FEW /HPF (NEGATIVE)
[2020-09-04 19:47] LABS: AMORPHOUS SEDIMENT,UR 1+ /HPF (NEGATIVE); GRANULAR CASTS,URINE FEW /LPF (NEGATIVE); OTHER CASTS, URINE FEW /LPF (NEGATIVE)
[2020-09-04] MEDS ORDERED: HumuLIN R SC PRN (20:01)
[2020-09-04] MEDS ORDERED: LEVAQUIN PREMIX IV 250 MG 250 MG/50 ML BAG IV ONE ×2 (20:01→20:29)
[2020-09-04] MEDS ORDERED: LASIX IVP STA (20:03)
[2020-09-04] MEDS ORDERED: SALINE 3% 15 ML NEB TX ONE (21:34)
[2020-09-04] MEDS: PROVENTIL NEB TX 0.083% 2.5MG/ 3ML NEB SCH (21:35)
[2020-09-04] MEDS ORDERED: PROVENTIL NEB TX 0.083% 2.5MG/ 3ML ONE (21:35)
[2020-09-04] MEDS ORDERED: SALINE 3% 15 ML NEB TX NEB ONE (21:35)
[2020-09-04] MEDS: ZOSYN VIAL 4.5 GRAMS 4.5 G in NS 100 ML IV + SPIKE MINIBAG* 100 ML IV SCH (22:00)
[2020-09-05 00:49] LABS: HEMATOCRIT 21.3 % (36.0-47.0)
[2020-09-05 00:52] LABS: HEMOGLOBIN 6.4 g/dL (12.0-16.0)
[2020-09-05 02:40] VITALS: BMI 27.8
[2020-09-05] MEDS: ZOSYN VIAL 4.5 GRAMS 4.5 G in NS 100 ML IV + SPIKE MINIBAG* 100 ML IV SCH ×2 (06:00→14:44)
[2020-09-05] MEDS: SYNTHROID 125 mcg TAB PO SCH (07:03)
[2020-09-05 07:56] LABS: BASOPHILS % (AUTO) 0.1 % (0.2-1.0); LYMPHOCYTES # (AUTO) 0.5 X10^3/uL (1.3-2.9); LYMPHOCYTES % (AUTO) 3.6 % (21.0-51.0); MEAN CORPUSCULAR HEMOGLOBIN 23.2 pg (27.0-34.0); MEAN CORPUSCULAR HGB CONC 30.6 g/dL (33.0-35.0); MEAN CORPUSCULAR VOLUME 75.7 fL (80.0-100.0); MEAN PLATELET VOLUME 9.3 fL (7.4-11.0); MONOCYTES # (AUTO) 0.5 x10^3/uL (0.3-0.8); MONOCYTES % (AUTO) 3.4 % (0.0-13.0); NEUTROPHILS % (AUTO) 92.9 % (42.0-75.0); PLATELET COUNT 276 X10^3/uL (150.0-450.0); RED BLOOD COUNT 2.33 X10^6/uL (3.5-5.4); RED CELL DISTRIBUTION WIDTH 18.6 % (11.6-16.5)
[2020-09-05 08:06] LABS: ALANINE AMINOTRANSFERASE 27 Units/L (12-78); ALBUMIN 2.6 g/dL (3.4-5.0); ALKALINE PHOSPHATASE 50 Units/L (46-116); ASPARTATE AMINO TRANSFERASE 69 Units/L (15-37); BLOOD UREA NITROGEN 60 mg/dL (7-18); CARBON DIOXIDE 20.1 mmol/L (21-32); CHLORIDE 106 mmol/L (98-107); COR CA(FOR HYPOALB) 9.1 mg/dL (8.5-10.1); CREATININE 4.11 mg/dL (0.55-1.02); SODIUM 138 mmol/L (136-145); TOTAL PROTEIN 5.8 g/dL (6.4-8.2); eGFR NON BLACK RACES 11 (>60)
[2020-09-05 08:16] LABS: HEMATOCRIT 17.7 % (36.0-47.0); HEMOGLOBIN 5.4 g/dL (12.0-16.0)
[2020-09-05 08:22] LABS: HYPOCHROMASIA SLIGHT; PLATELET MORPHOLOGY COMMENT NORMAL (NORMAL)
[2020-09-05] MEDS: PROVENTIL NEB TX 0.083% 2.5MG/ 3ML NEB SCH ×4 (08:32→20:26)
[2020-09-05] MEDS: VSL#3 PO SCH (08:45)
[2020-09-05] MEDS ORDERED: PROVENTIL NEB TX 0.083% 2.5MG/ 3ML NEB SCH (09:00)
[2020-09-05] MEDS ORDERED: LEVOTHYROXINE 125 MCG PO SCH (09:00)
[2020-09-05] MEDS ORDERED: PERCOCET TAB 5/325 MG PO PRN (09:53)
[2020-09-05] MEDS ORDERED: ROXICODONE TAB 5 MG PO PRN (09:54)
[2020-09-05] MEDS: ZESTRIL TAB 5 MG PO SCH (10:54)
[2020-09-05] MEDS: PLAVIX PO SCH (10:54)
[2020-09-05] MEDS: ZOLOFT PO SCH (10:55)
[2020-09-05] MEDS ORDERED: NS 500 ML IV 500 ML IV SCH (16:00)
[2020-09-05] MEDS ORDERED: NS 500 ML IV 500 ML IV ONE (16:03)
[2020-09-05] MEDS ORDERED: LASIX IVP SCH (17:00)
[2020-09-05] MEDS: LASIX IVP SCH (21:00)
[2020-09-05] MEDS: MIRALAX POWDER (1 DOSE 17 G) PO SCH (21:36)
[2020-09-06] MEDS ORDERED: NS 250 ML IV 250 ML IV ONE (00:31)
[2020-09-06] MEDS: ZOSYN VIAL 4.5 GRAMS 4.5 G in NS 100 ML IV + SPIKE MINIBAG* 100 ML IV SCH ×2 (06:00→06:45)
[2020-09-06 06:09] LABS: BASOPHILS # (AUTO) 0.1 X10^3/uL (0.0-0.1); BASOPHILS % (AUTO) 0.4 % (0.2-1.0); HEMOGLOBIN 8.9 g/dL (12.0-16.0); LYMPHOCYTES # (AUTO) 0.7 X10^3/uL (1.3-2.9); LYMPHOCYTES % (AUTO) 4.8 % (21.0-51.0); MEAN CORPUSCULAR HEMOGLOBIN 26.3 pg (27.0-34.0); MEAN CORPUSCULAR HGB CONC 32.8 g/dL (33.0-35.0); MEAN CORPUSCULAR VOLUME 80.1 fL (80.0-100.0); MEAN PLATELET VOLUME 9.2 fL (7.4-11.0); MONOCYTES % (AUTO) 7.3 % (0.0-13.0); NEUTROPHILS # (AUTO) 12.3 x10^3/uL (2.2-4.8); NEUTROPHILS % (AUTO) 87.5 % (42.0-75.0); PLATELET COUNT 219 X10^3/uL (150.0-450.0); RED BLOOD COUNT 3.37 X10^6/uL (3.5-5.4); RED CELL DISTRIBUTION WIDTH 20.9 % (11.6-16.5); WHITE BLOOD COUNT 14.1 X10^3/uL (3.6-10.0)
[2020-09-06 06:19] LABS: ALBUMIN 2.5 g/dL (3.4-5.0); CALCIUM 7.5 mg/dL (8.5-10.1); CARBON DIOXIDE 19.6 mmol/L (21-32); COR CA(FOR HYPOALB) 8.7 mg/dL (8.5-10.1); CREATININE 4.57 mg/dL (0.55-1.02); TOTAL PROTEIN 5.7 g/dL (6.4-8.2)
[2020-09-06 06:46] LABS: ANISOCYTOSIS 1+; PLATELET MORPHOLOGY COMMENT NORMAL (NORMAL)
[2020-09-06] MEDS: SYNTHROID 125 mcg TAB PO SCH (06:46)
[2020-09-06] MEDS: LASIX IVP SCH (07:11)
[2020-09-06] MEDS: PLAVIX PO SCH (08:45)
[2020-09-06] MEDS: ZESTRIL TAB 5 MG PO SCH (08:45)
[2020-09-06] MEDS: PROVENTIL NEB TX 0.083% 2.5MG/ 3ML NEB SCH ×4 (09:10→20:21)
[2020-09-06] MEDS ORDERED: NS 1000 ML 1,000 ML IV ONE ×2 (09:29→21:30)
[2020-09-06] MEDS: ZOLOFT PO SCH (09:45)
[2020-09-06] MEDS: VSL#3 PO SCH (09:45)
[2020-09-06] MEDS: ALBUMIN HUMAN 25%- 100 ML 100 ML IV SCH ×2 (11:43→22:21)
[2020-09-06 13:29] LABS: CALCIUM 7.7 mg/dL (8.5-10.1); CARBON DIOXIDE 19.8 mmol/L (21-32); CREATININE 4.64 mg/dL (0.55-1.02)
[2020-09-06] MEDS: NS 1000 ML 1,000 ML IV SCH ×2 (18:28→20:34)
[2020-09-06 19:00] LABS: ALBUMIN 2.7 g/dL (3.4-5.0); CALCIUM 7.8 mg/dL (8.5-10.1); CARBON DIOXIDE 19.3 mmol/L (21-32); COR CA(FOR HYPOALB) 8.8 mg/dL (8.5-10.1); CREATININE 4.62 mg/dL (0.55-1.02); TOTAL PROTEIN 5.9 g/dL (6.4-8.2)
[2020-09-06] MEDS: ZOSYN VIAL 3.375 GRAMS 3.375 G in NS 100 ML IV + SPIKE MINIBAG* 100 ML IV SCH (21:25)
[2020-09-06] MEDS: MIRALAX POWDER (1 DOSE 17 G) PO SCH (21:35)
[2020-09-07] MEDS: NS 1000 ML 1,000 ML IV SCH ×3 (01:50→17:52)
[2020-09-07] MEDS: SYNTHROID 125 mcg TAB PO SCH (06:24)
[2020-09-07 06:26] LABS: BASOPHILS % (AUTO) 0.1 % (0.2-1.0); HEMATOCRIT 26.6 % (36.0-47.0); HEMOGLOBIN 8.6 g/dL (12.0-16.0); LYMPHOCYTES # (AUTO) 0.6 X10^3/uL (1.3-2.9); LYMPHOCYTES % (AUTO) 5.5 % (21.0-51.0); MEAN CORPUSCULAR HEMOGLOBIN 26.4 pg (27.0-34.0); MEAN CORPUSCULAR HGB CONC 32.1 g/dL (33.0-35.0); MEAN CORPUSCULAR VOLUME 82.1 fL (80.0-100.0); MONOCYTES # (AUTO) 0.7 x10^3/uL (0.3-0.8); MONOCYTES % (AUTO) 6.9 % (0.0-13.0); NEUTROPHILS # (AUTO) 8.9 x10^3/uL (2.2-4.8); NEUTROPHILS % (AUTO) 87.5 % (42.0-75.0); PLATELET COUNT 179 X10^3/uL (150.0-450.0); RED BLOOD COUNT 3.24 X10^6/uL (3.5-5.4); RED CELL DISTRIBUTION WIDTH 21.4 % (11.6-16.5); WHITE BLOOD COUNT 10.2 X10^3/uL (3.6-10.0)
[2020-09-07 06:42] LABS: ALBUMIN 2.9 g/dL (3.4-5.0); CALCIUM 7.7 mg/dL (8.5-10.1); CARBON DIOXIDE 18.8 mmol/L (21-32); COR CA(FOR HYPOALB) 8.6 mg/dL (8.5-10.1); CREATININE 4.49 mg/dL (0.55-1.02)
[2020-09-07 07:16] LABS: PLATELET MORPHOLOGY COMMENT NORMAL (NORMAL)
[2020-09-07 07:17] LABS: ANISOCYTOSIS 1+
[2020-09-07] MEDS: PROVENTIL NEB TX 0.083% 2.5MG/ 3ML NEB SCH ×4 (08:25→21:45)
[2020-09-07] MEDS: ZESTRIL TAB 5 MG PO SCH (08:45)
[2020-09-07] MEDS: ALBUMIN HUMAN 25%- 100 ML 100 ML IV SCH ×2 (08:45→21:12)
[2020-09-07] MEDS: VSL#3 PO SCH (08:45)
[2020-09-07] MEDS: PLAVIX PO SCH (08:45)
[2020-09-07] MEDS ORDERED: NS 1000 ML 1,000 ML IV ONE (08:48)
[2020-09-07] MEDS: ZOSYN VIAL 3.375 GRAMS 3.375 G in NS 100 ML IV + SPIKE MINIBAG* 100 ML IV SCH ×2 (09:50→22:10)
[2020-09-07] MEDS: ZOLOFT PO SCH (10:17)
--- NOTE | 2020-09-07 15:50 | DR.PROGNOT ---
Hospital Progress Notes - Progress Note for Day of: Progress Note Date: 09/07/20 - Chief Complaint Chief Complaint: no abdominal pain , no nausea or vomiting .. no active bleeding and her count is stable . being treated for her renal failure and CHF . - Past Medical Family Social History Past Med/Fam/Surg Hx: No changes since H&P Allergies: Allergies acetaminophen [From Darvocet-N] Allergy (Verified 08/25/20 23:28) codeine Allergy (Verified 08/25/20 23:28) propoxyphene [From Darvocet-N] Allergy (Verified 08/25/20 23:28) - Review Of Systems ROS: No change since H&P - Vital Signs Vital Signs: Temperature 97.6 F Pulse Rate [Left] 96 Pulse Rate 91 Respiratory Rate 20 Blood Pressure [Left Arm] 117/79 Blood Pressure 99/48 O2 Sat by Pulse Oximetry 100 - Physical Exam Oriented: Time Eyes: Normal Ear: Normal Nose: Normal Throat: Normal Respiratory: Normal Cardiovascular: Normal : Normal GI:Auscultation: Normal GI:Palpation: Normal GI: Tenderness: Normal Skin: Normal Speech Pattern: Appropriate, Unclear - Laboratory and Diagnostics Result Diagrams: 09/07/20 05:39 09/07/20 05:39 Labs: Laboratory WBC 10.2 X10^3/uL (3.6-10.0) H 09/07/20 05:39 RBC 3.24 X10^6/uL (3.5-5.4) L 09/07/20 05:39 Hgb 8.6 g/dL (12.0-16.0) L 09/07/20 05:39 Hct 26.6 % (36.0-47.0) L 09/07/20 05:39 MCV 82.1 fL (80.0-100.0) 09/07/20 05:39 MCH 26.4 pg (27.0-34.0) L 09/07/20 05:39 MCHC 32.1 g/dL (33.0-35.0) L 09/07/20 05:39 RDW 21.4 % (11.6-16.5) H 09/07/20 05:39 Plt Count 179 X10^3/uL (150.0-450.0) 09/07/20 05:39 Plt Count Comment Adequate (ADEQUATE) 09/07/20 05:39 MPV 9.0 fL (7.4-11.0) 09/07/20 05:39 Neut % (Auto) 87.5 % (42.0-75.0) H 09/07/20 05:39 Lymph % (Auto) 5.5 % (21.0-51.0) L 09/07/20 05:39 [place] % (Auto) 6.9 % (0.0-13.0) 09/07/20 05:39 Eos % (Auto) 0.0 % (0.9-2.9) L 09/07/20 05:39 Baso % (Auto) 0.1 % (0.2-1.0) L 09/07/20 05:39 Neut # (Auto) 8.9 x10^3/uL (2.2-4.8) H 09/07/20 05:39 Lymph # (Auto) 0.6 X10^3/uL (1.3-2.9) L 09/07/20 05:39 [place] # (Auto) 0.7 x10^3/uL (0.3-0.8) 09/07/20 05:39 Eos # (Auto) 0.0 x10^3/uL (0.0-0.2) 09/07/20 05:39 Baso # (Auto) 0.0 X10^3/uL (0.0-0.1) 09/07/20 05:39 Absolute Nucleated RBC 2.5 /100WBC 09/07/20 05:39 Total Counted 100 09/07/20 05:39 Neutrophils % (Manual) 86 % (39-76) H 09/07/20 05:39 Lymphocytes % (Manual) 9 % (13-43) L 09/07/20 05:39 Monocytes % (Manual) 5 % (4-9) 09/07/20 05:39 Nucleated RBCs 2 09/07/20 05:39 Plt Morphology Comment Normal (NORMAL) 09/07/20 05:39 RBC Morphology Abnormal (NORMAL) A 09/07/20 05:39 Hypochromasia Slight A 09/05/20 07:45 Anisocytosis 1+ A 09/07/20 05:39 PT 16.4 SECONDS (11.8-14.3) 09/04/20 17:03 INR Target Range - 09/04/20 17:03 INR 1.36 (0.8-1.3) H 09/04/20 17:03 APTT 37.5 SECONDS (22.9-36.5) H 09/04/20 17:03 PTT Comment - 09/04/20 17:03 D-Dimer 1.77 ug/ml (0.0-0.57) H* 09/04/20 17:03 Sodium 136 mmol/L (136-145) 09/07/20 05:39 Corrected Sodium 136 mmol/L (136-145) 09/07/20 05:39 Potassium 4.7 mmol/L (3.5-5.1) 09/07/20 05:39 Chloride 103 mmol/L (98-107) 09/07/20 05:39 Carbon Dioxide 18.8 mmol/L (21-32) L 09/07/20 05:39 BUN 64 mg/dL (7-18) H 09/07/20 05:39 Creatinine 4.49 mg/dL (0.55-1.02) H 09/07/20 05:39 Est GFR (MDRD) Af Amer 12 (>60) L 09/07/20 05:39 Est GFR (MDRD) Non-Af 10 (>60) L 09/07/20 05:39 Glucose 115 mg/dL (65-99) H 09/07/20 05:39 POC Glucose (mg/dL) 140 mg/dL (65-99) H 09/07/20 11:15 Lactic Acid 0.9 mmol/L (0.4-2.0) 09/05/20 07:45 Calcium 7.7 mg/dL (8.5-10.1) L 09/07/20 05:39 Corrected Calcium 8.6 mg/dL (8.5-10.1) 09/07/20 05:39 Magnesium 2.3 mg/dL (1.7-2.9) 09/04/20 16:23 Iron 12 ug/dL (50-175) L 09/05/20 00:28 Transferrin 394 mg/dL (202-364) H 09/05/20 00:28 Ferritin 26 ng/mL (8-252) 09/05/20 00:28 Total Bilirubin 0.50 mg/dL (0.2-1.0) 09/07/20 05:39 AST 62 Units/L (15-37) H 09/07/20 05:39 ALT 30 Units/L (12-78) 09/07/20 05:39 Alkaline Phosphatase 42 Units/L (46-116) L 09/07/20 05:39 B-Natriuretic Peptide 4360 pg/mL (0-79) H* 09/04/20 16:23 Total Protein 6.0 g/dL (6.4-8.2) L 09/07/20 05:39 Albumin 2.9 g/dL (3.4-5.0) L 09/07/20 05:39 Globulin 3.1 g/dL (2.5-4.5) 09/07/20 05:39 Albumin/Globulin Ratio 0.9 Ratio (1.1-2.1) L 09/07/20 05:39 Vitamin B12 922 pg/mL (193-986) 09/05/20 00:28 Folate 10.6 ng/mL (>8.6) 09/05/20 00:28 Specimen Type Catherized urine 09/04/20 18:45 Urine Color Yellow (YELLOW) 09/04/20 18:45 Urine Appearance Clear (CLEAR) 09/04/20 18:45 Urine pH 5.0 (5.0 - 8.0) 09/04/20 18:45 Ur Specific [place] 1.030 (1.000-1.030) 09/04/20 18:45 Urine Protein 4+ (NEGATIVE) 09/04/20 18:45 Urine Glucose (UA) Negative (NEGATIVE) 09/04/20 18:45 Urine Ketones Negative (NEGATIVE) 09/04/20 18:45 Urine Occult Blood Negative (NEGATIVE) 09/04/20 18:45 Urine Nitrite Negative (NEGATIVE) 09/04/20 18:45 Urine Bilirubin 2+ (NEGATIVE) 09/04/20 18:45 Urine Urobilinogen 1+ (NORMAL) 09/04/20 18:45 Ur Leukocyte Esterase 1+ (NEGATIVE) 09/04/20 18:45 Urine RBC 0-2 /HPF (0-3) 09/04/20 18:45 Urine WBC 3-5 /HPF (0-5) 09/04/20 18:45 Ur Squamous Epith Cells Few /HPF (NEGATIVE) 09/04/20 18:45 Amorphous Sediment 1+ /HPF (NEGATIVE) 09/04/20 18:45 Urine Bacteria 1+ /HPF (NEGATIVE) 09/04/20 18:45 Granular Casts Few /LPF (NEGATIVE) 09/04/20 18:45 Other Casts Few /LPF (NEGATIVE) 09/04/20 18:45 Ur Culture Indicated? No/not indicated 09/04/20 18:45 Urine Opiates Screen Negative (NEG=<300) 09/04/20 18:45 Urine Methadone Screen Negative (NEG=<300) 09/04/20 18:45 Ur Barbiturates Screen Negative (NEG=<200) 09/04/20 18:45 Ur Phencyclidine Scrn Negative (NEG=<25) 09/04/20 18:45 Ur Amphetamines Screen Negative (NEG=<1000) 09/04/20 18:45 U Benzodiazepines Scrn Positive (NEG=<200) A 09/04/20 18:45 Urine Cocaine Screen Negative (NEG=<300) 09/04/20 18:45 U Marijuana (THC) Screen Negative (NEG=<50) 09/04/20 18:45 SARS CoV-2 RNA Rapid ANGÉLICA Negative (NEGATIVE) 09/04/20 18:33 Blood Type A POSITIVE 09/05/20 07:50 Antibody Screen Negative 09/05/20 07:50 Crossmatch See Detail 09/05/20 07:50 - Assessment and Plan 1: pneumonia . renal failure . CHF. severe anemia , ( corrected ) . for GI w/u when cleared by Dr Brody .. - Problem Patient Problems: Patient Problems Bilateral pneumonia (Acute) J18.9 Congestive heart failure (CHF) (Acute) I50.9 Symptomatic anemia (Acute) D64.9 PAOD (peripheral arterial occlusive disease) (Acute) I77.9 Chronic kidney disease (CKD) (Acute) N18.9 Hyperglycemia (Acute) R73.9 Sinus bradycardia (Acute) R00.1
[2020-09-07] MEDS: MIRALAX POWDER (1 DOSE 17 G) PO SCH (21:13)
[2020-09-08] MEDS: NS 1000 ML 1,000 ML IV SCH ×3 (02:05→21:20)
[2020-09-08] MEDS: SYNTHROID 125 mcg TAB PO SCH (06:00)
[2020-09-08 06:06] LABS: BASOPHILS % (AUTO) 0.3 % (0.2-1.0); EOSINOPHILS % (AUTO) 0.1 % (0.9-2.9); HEMATOCRIT 28.2 % (36.0-47.0); HEMOGLOBIN 9.2 g/dL (12.0-16.0); LYMPHOCYTES # (AUTO) 0.5 X10^3/uL (1.3-2.9); LYMPHOCYTES % (AUTO) 5.5 % (21.0-51.0); MEAN CORPUSCULAR HEMOGLOBIN 26.7 pg (27.0-34.0); MEAN CORPUSCULAR HGB CONC 32.5 g/dL (33.0-35.0); MEAN PLATELET VOLUME 9.1 fL (7.4-11.0); MONOCYTES # (AUTO) 0.6 x10^3/uL (0.3-0.8); MONOCYTES % (AUTO) 6.7 % (0.0-13.0); NEUTROPHILS # (AUTO) 7.8 x10^3/uL (2.2-4.8); NEUTROPHILS % (AUTO) 87.4 % (42.0-75.0); PLATELET COUNT 171 X10^3/uL (150.0-450.0); RED BLOOD COUNT 3.44 X10^6/uL (3.5-5.4); RED CELL DISTRIBUTION WIDTH 21.8 % (11.6-16.5)
[2020-09-08 06:34] LABS: CALCIUM 8.2 mg/dL (8.5-10.1); CARBON DIOXIDE 19.3 mmol/L (21-32); CREATININE 4.21 mg/dL (0.55-1.02); TOTAL PROTEIN 5.9 g/dL (6.4-8.2)
[2020-09-08 06:52] LABS: BAND NEUTROPHILS % 2 % (0-10)
[2020-09-08 06:53] LABS: ANISOCYTOSIS 1+; PLATELET MORPHOLOGY COMMENT NORMAL (NORMAL)
[2020-09-08] MEDS: PROVENTIL NEB TX 0.083% 2.5MG/ 3ML NEB SCH ×4 (08:17→20:25)
[2020-09-08] MEDS ORDERED: NS 1000 ML 1,000 ML IV ONE (08:56)
[2020-09-08] MEDS: ALBUMIN HUMAN 25%- 100 ML 100 ML IV SCH ×2 (09:46→21:17)
[2020-09-08] MEDS: ZOSYN VIAL 3.375 GRAMS 3.375 G in NS 100 ML IV + SPIKE MINIBAG* 100 ML IV SCH ×2 (09:48→22:30)
[2020-09-08] MEDS: ZESTRIL TAB 5 MG PO SCH (09:48)
[2020-09-08] MEDS: VSL#3 PO SCH (09:49)
[2020-09-08] MEDS: PLAVIX PO SCH (09:49)
[2020-09-08] MEDS: ZOLOFT PO SCH (09:52)
[2020-09-08] MEDS: XANAX PO PRN (09:53)
[2020-09-08] MEDS: HEPARIN SODIUM INJ 5000 UNITS SC SCH ×2 (15:00→21:18)
[2020-09-08] MEDS: MIRALAX POWDER (1 DOSE 17 G) PO SCH (21:18)
[2020-09-09] MEDS ORDERED: NYSTATIN POWDER ONE (01:50)
[2020-09-09] MEDS: NS 1000 ML 1,000 ML IV SCH ×4 (02:58→18:13)
[2020-09-09] MEDS: HEPARIN SODIUM INJ 5000 UNITS SC SCH ×3 (05:55→21:06)
[2020-09-09 06:04] LABS: BASOPHILS % (AUTO) 0.1 % (0.2-1.0); EOSINOPHILS % (AUTO) 0.2 % (0.9-2.9); HEMATOCRIT 29.8 % (36.0-47.0); HEMOGLOBIN 9.6 g/dL (12.0-16.0); LYMPHOCYTES # (AUTO) 0.4 X10^3/uL (1.3-2.9); LYMPHOCYTES % (AUTO) 3.6 % (21.0-51.0); MEAN CORPUSCULAR HEMOGLOBIN 26.3 pg (27.0-34.0); MEAN CORPUSCULAR HGB CONC 32.1 g/dL (33.0-35.0); MEAN CORPUSCULAR VOLUME 82.1 fL (80.0-100.0); MEAN PLATELET VOLUME 9.2 fL (7.4-11.0); MONOCYTES # (AUTO) 0.6 x10^3/uL (0.3-0.8); MONOCYTES % (AUTO) 5.9 % (0.0-13.0); NEUTROPHILS # (AUTO) 9.4 x10^3/uL (2.2-4.8); NEUTROPHILS % (AUTO) 90.2 % (42.0-75.0); PLATELET COUNT 184 X10^3/uL (150.0-450.0); RED BLOOD COUNT 3.63 X10^6/uL (3.5-5.4); RED CELL DISTRIBUTION WIDTH 22.4 % (11.6-16.5); WHITE BLOOD COUNT 10.4 X10^3/uL (3.6-10.0)
[2020-09-09] MEDS: SYNTHROID 125 mcg TAB PO SCH (06:04)
[2020-09-09 06:37] LABS: ALANINE AMINOTRANSFERASE 33 Units/L (12-78); ALBUMIN 3.4 g/dL (3.4-5.0); ALKALINE PHOSPHATASE 41 Units/L (46-116); ASPARTATE AMINO TRANSFERASE 35 Units/L (15-37); BLOOD UREA NITROGEN 65 mg/dL (7-18); CALCIUM 8.2 mg/dL (8.5-10.1); CARBON DIOXIDE 16.5 mmol/L (21-32); CHLORIDE 105 mmol/L (98-107); CREATININE 3.87 mg/dL (0.55-1.02); SODIUM 139 mmol/L (136-145); TOTAL PROTEIN 6.1 g/dL (6.4-8.2); eGFR NON BLACK RACES 12 (>60)
[2020-09-09 06:39] LABS: PLATELET MORPHOLOGY COMMENT NORMAL (NORMAL)
[2020-09-09 06:40] LABS: ANISOCYTOSIS 2+
--- NOTE | 2020-09-09 07:20 | RAD ---
HISTORYFollow-up congestive heart failure, pneumoniaSTUDYChest AP [id number]/20/2021FINDINGSThere is a port present on the right. The heart remains enlarged. Pulmonary venous congestion is present. No interstitial edema, alveolar edema, or alveolar infiltrat es are identified. A small left pleural effusion may be present. Bony thorax is unremarkable.IMPRESSI ONCardiomegaly with pulmonary venous congestionNo definite acute infiltratesSuspect small left pleura l effusionElectronically signed by: GERALDO RODRIGUEZ (Sep 09, 2020 07:18:41)
[2020-09-09] MEDS: PROVENTIL NEB TX 0.083% 2.5MG/ 3ML NEB SCH ×4 (08:28→20:52)
[2020-09-09] MEDS: ZESTRIL TAB 5 MG PO SCH (08:42)
[2020-09-09] MEDS: PLAVIX PO SCH (08:46)
[2020-09-09] MEDS: XANAX PO PRN (08:47)
[2020-09-09] MEDS: VSL#3 PO SCH (08:50)
[2020-09-09] MEDS: ALBUMIN HUMAN 25%- 100 ML 100 ML IV SCH ×2 (08:53→20:30)
[2020-09-09] MEDS ORDERED: LR 1000 ML IV 1,000 ML IV ONE (08:57)
[2020-09-09] MEDS ORDERED: LASIX IVP ONE (09:00)
[2020-09-09] MEDS: ZOSYN VIAL 3.375 GRAMS 3.375 G in NS 100 ML IV + SPIKE MINIBAG* 100 ML IV SCH ×2 (09:03→21:06)
[2020-09-09] MEDS: ZOLOFT PO SCH (10:15)
[2020-09-09] MEDS: MIRALAX POWDER (1 DOSE 17 G) PO SCH (20:31)
[2020-09-10] MEDS: NS 1000 ML 1,000 ML IV SCH ×3 (04:17→15:00)
[2020-09-10] MEDS: HEPARIN SODIUM INJ 5000 UNITS SC SCH ×3 (05:24→21:23)
[2020-09-10 06:08] LABS: BASOPHILS % (AUTO) 0.2 % (0.2-1.0); EOSINOPHILS % (AUTO) 0.3 % (0.9-2.9); HEMATOCRIT 28.6 % (36.0-47.0); HEMOGLOBIN 9.2 g/dL (12.0-16.0); LYMPHOCYTES # (AUTO) 0.3 X10^3/uL (1.3-2.9); LYMPHOCYTES % (AUTO) 3.5 % (21.0-51.0); MEAN CORPUSCULAR HEMOGLOBIN 26.4 pg (27.0-34.0); MEAN CORPUSCULAR VOLUME 82.4 fL (80.0-100.0); MEAN PLATELET VOLUME 8.9 fL (7.4-11.0); MONOCYTES # (AUTO) 0.5 x10^3/uL (0.3-0.8); MONOCYTES % (AUTO) 5.6 % (0.0-13.0); NEUTROPHILS # (AUTO) 8.5 x10^3/uL (2.2-4.8); NEUTROPHILS % (AUTO) 90.4 % (42.0-75.0); PLATELET COUNT 180 X10^3/uL (150.0-450.0); RED BLOOD COUNT 3.48 X10^6/uL (3.5-5.4); RED CELL DISTRIBUTION WIDTH 22.4 % (11.6-16.5)
[2020-09-10 06:16] LABS: ALANINE AMINOTRANSFERASE 25 Units/L (12-78); ALBUMIN 3.5 g/dL (3.4-5.0); ALKALINE PHOSPHATASE 30 Units/L (46-116); ASPARTATE AMINO TRANSFERASE 24 Units/L (15-37); BLOOD UREA NITROGEN 66 mg/dL (7-18); CALCIUM 8.7 mg/dL (8.5-10.1); CHLORIDE 108 mmol/L (98-107); CREATININE 3.72 mg/dL (0.55-1.02); SODIUM 140 mmol/L (136-145); TOTAL PROTEIN 6.1 g/dL (6.4-8.2); eGFR NON BLACK RACES 12 (>60)
[2020-09-10 06:37] LABS: BAND NEUTROPHILS % 1 % (0-10); WHITE BLOOD COUNT 10.2 X10^3/uL (3.6-10.0)
[2020-09-10 06:38] LABS: ANISOCYTOSIS 2+; HYPOCHROMASIA SLIGHT; PLATELET MORPHOLOGY COMMENT NORMAL (NORMAL)
[2020-09-10] MEDS: PROVENTIL NEB TX 0.083% 2.5MG/ 3ML NEB SCH ×4 (08:20→20:45)
[2020-09-10] MEDS: SYNTHROID 125 mcg TAB PO SCH (08:39)
[2020-09-10] MEDS: VSL#3 PO SCH (08:39)
[2020-09-10] MEDS: ZOSYN VIAL 3.375 GRAMS 3.375 G in NS 100 ML IV + SPIKE MINIBAG* 100 ML IV SCH ×2 (08:39→21:24)
[2020-09-10] MEDS: PLAVIX PO SCH (08:40)
[2020-09-10] MEDS: ALBUMIN HUMAN 25%- 100 ML 100 ML IV SCH ×2 (08:40→21:22)
[2020-09-10] MEDS: ZESTRIL TAB 5 MG PO SCH (08:40)
[2020-09-10] MEDS ORDERED: LR 1000 ML IV 1,000 ML IV ONE (08:45)
[2020-09-10] MEDS: ZOLOFT PO SCH (10:05)
[2020-09-10] MEDS ORDERED: NS 500 ML IV 500 ML IV ONE (11:46)
[2020-09-10] MEDS ORDERED: VERSED ONE (11:56)
[2020-09-10] MEDS ORDERED: KETALAR ONE (11:56)
[2020-09-10] MEDS: MIRALAX POWDER (1 DOSE 17 G) PO SCH ×2 (21:24→22:39)
[2020-09-11] MEDS: HEPARIN SODIUM INJ 5000 UNITS SC SCH ×3 (05:47→21:16)
[2020-09-11] MEDS: NS 1000 ML 1,000 ML IV SCH ×4 (06:11→21:16)
--- NOTE | 2020-09-11 06:55 | RAD ---
HISTORYSOB pneumoniaSTUDYAP chestCOMPARISONFebruary 2020FINDINGSSimilar cardiomegaly. Stable position of right subclavian injection port. Increasing diffuse opacity of the right chest is present without evidence for localized mass or consolidation. Persistent retrocardiac opacity obscures the descending aorta and left diaphragm.IMPRESSIONStable cardiomegaly. Persistent left basal opacity consistent with pneumonia/atelectasis and fluid. Increasing diffuse opacification of the right chest is suggestive of increasing airspace disease right lung although a layering right pleural effusion may contribute to this appearance.Electronically signed by: TORRES HALLMAN (Sep 11, 2020 06:53:56)
[2020-09-11 07:02] LABS: ALANINE AMINOTRANSFERASE 26 Units/L (12-78); ALBUMIN 3.7 g/dL (3.4-5.0); ALKALINE PHOSPHATASE 31 Units/L (46-116); ASPARTATE AMINO TRANSFERASE 25 Units/L (15-37); BLOOD UREA NITROGEN 64 mg/dL (7-18); CALCIUM 8.6 mg/dL (8.5-10.1); CARBON DIOXIDE 18.4 mmol/L (21-32); CHLORIDE 108 mmol/L (98-107); CREATININE 3.57 mg/dL (0.55-1.02); SODIUM 142 mmol/L (136-145); TOTAL PROTEIN 6.1 g/dL (6.4-8.2); eGFR NON BLACK RACES 13 (>60)
[2020-09-11 07:24] LABS: BASOPHILS % (AUTO) 0.1 % (0.2-1.0); EOSINOPHILS % (AUTO) 0.2 % (0.9-2.9); HEMATOCRIT 27.5 % (36.0-47.0); HEMOGLOBIN 8.8 g/dL (12.0-16.0); LYMPHOCYTES # (AUTO) 0.3 X10^3/uL (1.3-2.9); LYMPHOCYTES % (AUTO) 3.8 % (21.0-51.0); MEAN CORPUSCULAR HEMOGLOBIN 26.4 pg (27.0-34.0); MEAN CORPUSCULAR HGB CONC 32.1 g/dL (33.0-35.0); MEAN CORPUSCULAR VOLUME 82.1 fL (80.0-100.0); MEAN PLATELET VOLUME 8.6 fL (7.4-11.0); MONOCYTES # (AUTO) 0.5 x10^3/uL (0.3-0.8); MONOCYTES % (AUTO) 6.3 % (0.0-13.0); NEUTROPHILS # (AUTO) 6.9 x10^3/uL (2.2-4.8); NEUTROPHILS % (AUTO) 89.6 % (42.0-75.0); PLATELET COUNT 180 X10^3/uL (150.0-450.0); RED BLOOD COUNT 3.35 X10^6/uL (3.5-5.4); RED CELL DISTRIBUTION WIDTH 23.1 % (11.6-16.5)
[2020-09-11] MEDS: PROVENTIL NEB TX 0.083% 2.5MG/ 3ML NEB SCH ×4 (08:47→20:52)
[2020-09-11 09:03] LABS: WHITE BLOOD COUNT 7.7 X10^3/uL (3.6-10.0)
[2020-09-11 09:04] LABS: ANISOCYTOSIS 2+; PLATELET MORPHOLOGY COMMENT NORMAL (NORMAL)
[2020-09-11] MEDS: SYNTHROID 125 mcg TAB PO SCH (09:04)
[2020-09-11] MEDS: PLAVIX PO SCH (09:05)
[2020-09-11] MEDS: ZESTRIL TAB 5 MG PO SCH (09:05)
[2020-09-11] MEDS: ALBUMIN HUMAN 25%- 100 ML 100 ML IV SCH ×2 (09:14→21:16)
[2020-09-11] MEDS: ZOLOFT PO SCH (09:14)
[2020-09-11] MEDS: ZOSYN VIAL 3.375 GRAMS 3.375 G in NS 100 ML IV + SPIKE MINIBAG* 100 ML IV SCH (09:15)
[2020-09-11] MEDS: VSL#3 PO SCH (09:15)
[2020-09-11] MEDS: OMNICEF CAP 300 MG PO SCH (11:19)
[2020-09-11] MEDS ORDERED: DULCOLAX TAB EC 5 MG PO ONE (12:00)
[2020-09-11] MEDS: MIRALAX POWDER (1 DOSE 17 G) PO SCH (23:17)
[2020-09-12] MEDS: NS 1000 ML 1,000 ML IV SCH ×4 (01:04→21:06)
[2020-09-12] MEDS: HEPARIN SODIUM INJ 5000 UNITS SC SCH ×3 (06:16→21:06)
[2020-09-12] MEDS: SYNTHROID 125 mcg TAB PO SCH (06:17)
[2020-09-12 06:36] LABS: BASOPHILS % (AUTO) 0.2 % (0.2-1.0); EOSINOPHILS % (AUTO) 0.1 % (0.9-2.9); HEMOGLOBIN 8.2 g/dL (12.0-16.0); LYMPHOCYTES # (AUTO) 0.3 X10^3/uL (1.3-2.9); LYMPHOCYTES % (AUTO) 3.1 % (21.0-51.0); MEAN CORPUSCULAR HGB CONC 31.4 g/dL (33.0-35.0); MEAN CORPUSCULAR VOLUME 83.1 fL (80.0-100.0); MEAN PLATELET VOLUME 8.6 fL (7.4-11.0); MONOCYTES # (AUTO) 0.6 x10^3/uL (0.3-0.8); MONOCYTES % (AUTO) 6.9 % (0.0-13.0); NEUTROPHILS # (AUTO) 8.1 x10^3/uL (2.2-4.8); NEUTROPHILS % (AUTO) 89.7 % (42.0-75.0); PLATELET COUNT 201 X10^3/uL (150.0-450.0); RED BLOOD COUNT 3.14 X10^6/uL (3.5-5.4); RED CELL DISTRIBUTION WIDTH 23.2 % (11.6-16.5); WHITE BLOOD COUNT 9.1 X10^3/uL (3.6-10.0)
[2020-09-12 06:51] LABS: ALANINE AMINOTRANSFERASE 27 Units/L (12-78); ALBUMIN 3.7 g/dL (3.4-5.0); ALKALINE PHOSPHATASE 26 Units/L (46-116); ASPARTATE AMINO TRANSFERASE 30 Units/L (15-37); BLOOD UREA NITROGEN 66 mg/dL (7-18); CALCIUM 8.3 mg/dL (8.5-10.1); CARBON DIOXIDE 15.7 mmol/L (21-32); CHLORIDE 110 mmol/L (98-107); CREATININE 3.53 mg/dL (0.55-1.02); SODIUM 144 mmol/L (136-145); TOTAL PROTEIN 5.9 g/dL (6.4-8.2); eGFR NON BLACK RACES 13 (>60)
--- NOTE | 2020-09-12 07:05 | RAD ---
HISTORYSOB pneumonia CHFSTUDYPortable AP chestCOMPARISONFebruary 2020FINDINGSSimilar cardiomegaly. There is no change in appearance of the diffuse opacification of the lungs consistent with airspace disease and pleural fluid. The hilar structures are significantly obscured. No extrapulmonary air is identified.IMPRESSIONThere is no significant change since 1 day earlier. Described findings consistent with pneumonia/pulmonary edema, and pleural effusions.Electronically signed by: TORRES HALLMAN (Sep 12, 2020 07:04:23)
[2020-09-12 07:28] LABS: BAND NEUTROPHILS % 3 % (0-10)
[2020-09-12 07:29] LABS: ANISOCYTOSIS 2+; HYPOCHROMASIA SLIGHT; PLATELET MORPHOLOGY COMMENT NORMAL (NORMAL)
[2020-09-12] MEDS: PROVENTIL NEB TX 0.083% 2.5MG/ 3ML NEB SCH ×4 (08:13→20:39)
[2020-09-12] MEDS: ALBUMIN HUMAN 25%- 100 ML 100 ML IV SCH ×2 (08:52→21:06)
[2020-09-12] MEDS: VSL#3 PO SCH (08:53)
[2020-09-12] MEDS: OMNICEF CAP 300 MG PO SCH (08:53)
[2020-09-12] MEDS: PLAVIX PO SCH (08:53)
[2020-09-12] MEDS: ZESTRIL TAB 5 MG PO SCH (08:54)
[2020-09-12] MEDS: ZOLOFT PO SCH (09:40)
--- NOTE | 2020-09-12 11:03 | RAD ---
HISTORYNG Tube Placement hx: htn, copd, dm, renal disease.br Port, angioplasty, appendectomy, choleSTUDYKUBCOMPARISONNone.FINDINGSEvaluation of the abdomen demonstrates a a nasogastric tube whose tip is below the level of the diaphragm, but side port is at the GE junction. Partially visualized c entral line overlying the right cavoatrial junction. Nonspecific bowel-gas pattern. No obvious free a ir. No pathological soft tissue mass or calcification can be observed. The bony structures are gross ly intact.IMPRESSIONNasogastric tube that should be advanced approximately 8-10 cm.Electronically sig kwesi by: ESTEFANY MUNSON (Sep 12, 2020 11:01:13)
[2020-09-12] MEDS: NULYTELY or GO-LYTELY PO SCH (11:53)
--- NOTE | 2020-09-12 11:56 | RAD ---
KUBHISTORY: NG Tube PlacementStudy: Single flat views of the abdomenComparison:NoneFindings:There is a normal bowel gas pattern.No free air..NG tube within the stomach. No acute bony abnormalities.IMPRESSION:1. NG tube within the stomach.Electronically signed by: MAGALY LERMA (Sep 12, 2020 11:55:05)
[2020-09-12] MEDS ORDERED: MIRALAX POWDER (255 GRAMS BTL) PO ONE (13:00)
[2020-09-12] MEDS: MIRALAX POWDER (1 DOSE 17 G) PO SCH (22:30)
[2020-09-13] MEDS: NS 1000 ML 1,000 ML IV SCH ×3 (02:38→17:35)
[2020-09-13] MEDS: HEPARIN SODIUM INJ 5000 UNITS SC SCH ×3 (05:30→21:15)
[2020-09-13] MEDS: SYNTHROID 125 mcg TAB PO SCH (06:19)
--- NOTE | 2020-09-13 06:23 | RAD ---
HISTORYSOBSTUDYCHEST, 1 VIEWCOMPARISONOne day prior.TECHNIQUEAP view of the chestFINDINGSPatient is rotated. NG tube courses below the visualized field of view. Cardiac silhouette is enlarged but this is partially due to patient rotation. Improved aeration in the right similar appearance of left mid and lower lung pleural parenchymal opacity. Right chest wall port in stable position. No discernible pneumothorax.IMPRESSIONImproved aeration of the right lung.Left mid and lower lung pleural parenchymal opacity that may represent a combination of pleural effusion, atelectasis, and or pneumonia. This appears similar to prior.Electronically signed by: Jasmeet Porter (Sep 13, 2020 06:21:39)
[2020-09-13 06:52] LABS: BASOPHILS % (AUTO) 0.2 % (0.2-1.0); EOSINOPHILS # (AUTO) 0.1 x10^3/uL (0.0-0.2); EOSINOPHILS % (AUTO) 0.8 % (0.9-2.9); HEMATOCRIT 25.9 % (36.0-47.0); LYMPHOCYTES # (AUTO) 0.3 X10^3/uL (1.3-2.9); LYMPHOCYTES % (AUTO) 3.2 % (21.0-51.0); MEAN CORPUSCULAR HEMOGLOBIN 25.7 pg (27.0-34.0); MEAN CORPUSCULAR HGB CONC 31.1 g/dL (33.0-35.0); MEAN CORPUSCULAR VOLUME 82.8 fL (80.0-100.0); MEAN PLATELET VOLUME 8.6 fL (7.4-11.0); MONOCYTES # (AUTO) 0.8 x10^3/uL (0.3-0.8); MONOCYTES % (AUTO) 7.4 % (0.0-13.0); NEUTROPHILS # (AUTO) 9.4 x10^3/uL (2.2-4.8); NEUTROPHILS % (AUTO) 88.4 % (42.0-75.0); PLATELET COUNT 218 X10^3/uL (150.0-450.0); RED BLOOD COUNT 3.12 X10^6/uL (3.5-5.4); RED CELL DISTRIBUTION WIDTH 23.6 % (11.6-16.5)
[2020-09-13 07:21] LABS: ALANINE AMINOTRANSFERASE 32 Units/L (12-78); ALBUMIN 3.9 g/dL (3.4-5.0); ALKALINE PHOSPHATASE 28 Units/L (46-116); ASPARTATE AMINO TRANSFERASE 57 Units/L (15-37); BLOOD UREA NITROGEN 71 mg/dL (7-18); CALCIUM 8.4 mg/dL (8.5-10.1); CARBON DIOXIDE 15.7 mmol/L (21-32); CHLORIDE 111 mmol/L (98-107); COR NA(FOR HYPERGLY) 145 mmol/L (136-145); CREATININE 3.64 mg/dL (0.55-1.02); SODIUM 144 mmol/L (136-145); TOTAL PROTEIN 5.9 g/dL (6.4-8.2); eGFR NON BLACK RACES 13 (>60)
[2020-09-13 07:46] LABS: ANISOCYTOSIS 2+; BAND NEUTROPHILS % 1 % (0-10); PLATELET MORPHOLOGY COMMENT NORMAL (NORMAL); WHITE BLOOD COUNT 10.7 X10^3/uL (3.6-10.0)
[2020-09-13 07:48] LABS: HYPOCHROMASIA SLIGHT
[2020-09-13] MEDS ORDERED: NS 100 ML IV 100 ML with VENOFER 400 MG IV NR ×2 (08:41)
[2020-09-13] MEDS ORDERED: LASIX IVP SCH (09:00)
[2020-09-13] MEDS: LASIX IVP SCH ×2 (09:12→17:34)
[2020-09-13] MEDS: PROVENTIL NEB TX 0.083% 2.5MG/ 3ML NEB SCH ×4 (09:16→20:25)
[2020-09-13] MEDS: PLAVIX PO SCH ×2 (09:16→12:36)
[2020-09-13] MEDS: NULYTELY or GO-LYTELY PO SCH (09:17)
[2020-09-13] MEDS: ZOLOFT PO SCH (09:17)
[2020-09-13] MEDS: ZESTRIL TAB 5 MG PO SCH ×2 (09:18→12:36)
[2020-09-13] MEDS: VSL#3 PO SCH (09:18)
[2020-09-13] MEDS ORDERED: NS 100 ML IV 100 ML IV ONE (12:30)
--- NOTE | 2020-09-13 14:14 | DR.PROGNOT ---
Hospital Progress Notes - Progress Note for Day of: Progress Note Date: 09/13/20 - Chief Complaint Chief Complaint: having SOB , generalized edema, deterioration of mental condition . BUN/Creat 71/3.6. Hgb 8. normal LFT and lytes . - Past Medical Family Social History Past Med/Fam/Surg Hx: No changes since H&P Allergies: Allergies acetaminophen [From Darvocet-N] Allergy (Verified 08/25/20 23:28) codeine Allergy (Verified 08/25/20 23:28) propoxyphene [From Darvocet-N] Allergy (Verified 08/25/20 23:28) - Review Of Systems ROS: No change since H&P - Vital Signs Vital Signs: Temperature 98.3 F Pulse Rate [Left] 111 Pulse Rate 118 Respiratory Rate 14 Blood Pressure [Right Arm] 186/86 Blood Pressure [Right Calf] 115/61 Blood Pressure [Left Calf] 125/86 Blood Pressure [Left Arm] 108/69 Blood Pressure 99/48 O2 Sat by Pulse Oximetry 98 - Physical Exam Oriented: Not Oriented (non verbal today .. ) Eyes: Normal Ear: Normal Nose: Normal Throat: Normal Respiratory: Normal Cardiovascular: Normal : Normal GI:Auscultation: Normal GI:Palpation: Normal GI: Tenderness: Normal Skin: Normal (edema , ) Speech Pattern: Unclear - Laboratory and Diagnostics Result Diagrams: 09/13/20 06:20 09/13/20 06:20 Labs: Laboratory WBC 10.7 X10^3/uL (3.6-10.0) H 09/13/20 06:20 RBC 3.12 X10^6/uL (3.5-5.4) L 09/13/20 06:20 Hgb 8.0 g/dL (12.0-16.0) L 09/13/20 06:20 Hct 25.9 % (36.0-47.0) L 09/13/20 06:20 MCV 82.8 fL (80.0-100.0) 09/13/20 06:20 MCH 25.7 pg (27.0-34.0) L 09/13/20 06:20 MCHC 31.1 g/dL (33.0-35.0) L 09/13/20 06:20 RDW 23.6 % (11.6-16.5) H 09/13/20 06:20 Plt Count 218 X10^3/uL (150.0-450.0) 09/13/20 06:20 Plt Count Comment Adequate (ADEQUATE) 09/13/20 06:20 MPV 8.6 fL (7.4-11.0) 09/13/20 06:20 Neut % (Auto) 88.4 % (42.0-75.0) H 09/13/20 06:20 Lymph % (Auto) 3.2 % (21.0-51.0) L 09/13/20 06:20 [place] % (Auto) 7.4 % (0.0-13.0) 09/13/20 06:20 Eos % (Auto) 0.8 % (0.9-2.9) L 09/13/20 06:20 Baso % (Auto) 0.2 % (0.2-1.0) 09/13/20 06:20 Neut # (Auto) 9.4 x10^3/uL (2.2-4.8) H 09/13/20 06:20 Lymph # (Auto) 0.3 X10^3/uL (1.3-2.9) L 09/13/20 06:20 [place] # (Auto) 0.8 x10^3/uL (0.3-0.8) 09/13/20 06:20 Eos # (Auto) 0.1 x10^3/uL (0.0-0.2) 09/13/20 06:20 Baso # (Auto) 0.0 X10^3/uL (0.0-0.1) 09/13/20 06:20 Absolute Nucleated RBC 10.6 /100WBC 09/13/20 06:20 Total Counted 100 09/13/20 06:20 Neutrophils % (Manual) 87 % (39-76) H 09/13/20 06:20 Band Neutrophils % 1 % (0-10) 09/13/20 06:20 Lymphocytes % (Manual) 9 % (13-43) L 09/13/20 06:20 Monocytes % (Manual) 3 % (4-9) L 09/13/20 06:20 Eosinophils % (Manual) 1 % (0-6) 09/11/20 05:30 Nucleated RBCs 16 09/13/20 06:20 Plt Morphology Comment Normal (NORMAL) 09/13/20 06:20 RBC Morphology Abnormal (NORMAL) A 09/13/20 06:20 Hypochromasia Slight A 09/13/20 06:20 Anisocytosis 2+ A 09/13/20 06:20 Macrocytosis Slight A 09/13/20 06:20 PT 16.4 SECONDS (11.8-14.3) 09/04/20 17:03 INR Target Range - 09/04/20 17:03 INR 1.36 (0.8-1.3) H 09/04/20 17:03 APTT 37.5 SECONDS (22.9-36.5) H 09/04/20 17:03 PTT Comment - 09/04/20 17:03 D-Dimer 1.77 ug/ml (0.0-0.57) H* 09/04/20 17:03 Sodium 144 mmol/L (136-145) 09/13/20 06:20 Corrected Sodium 145 mmol/L (136-145) 09/13/20 06:20 Potassium 3.7 mmol/L (3.5-5.1) 09/13/20 06:20 Chloride 111 mmol/L (98-107) H 09/13/20 06:20 Carbon Dioxide 15.7 mmol/L (21-32) L 09/13/20 06:20 BUN 71 mg/dL (7-18) H 09/13/20 06:20 Creatinine 3.64 mg/dL (0.55-1.02) H 09/13/20 06:20 Est GFR (MDRD) Af Amer 15 (>60) L 09/13/20 06:20 Est GFR (MDRD) Non-Af 13 (>60) L 09/13/20 06:20 Glucose 146 mg/dL (65-99) H 09/13/20 06:20 POC Glucose (mg/dL) 137 mg/dL (65-99) H 09/13/20 11:21 Lactic Acid 0.9 mmol/L (0.4-2.0) 09/05/20 07:45 Calcium 8.4 mg/dL (8.5-10.1) L 09/13/20 06:20 Corrected Calcium TNP 09/13/20 06:20 Magnesium 2.3 mg/dL (1.7-2.9) 09/04/20 16:23 Iron 12 ug/dL (50-175) L 09/05/20 00:28 Transferrin 394 mg/dL (202-364) H 09/05/20 00:28 Ferritin 26 ng/mL (8-252) 09/05/20 00:28 Total Bilirubin 1.00 mg/dL (0.2-1.0) 09/13/20 06:20 AST 57 Units/L (15-37) H 09/13/20 06:20 ALT 32 Units/L (12-78) 09/13/20 06:20 Alkaline Phosphatase 28 Units/L (46-116) L 09/13/20 06:20 B-Natriuretic Peptide 4360 pg/mL (0-79) H* 09/04/20 16:23 Total Protein 5.9 g/dL (6.4-8.2) L 09/13/20 06:20 Albumin 3.9 g/dL (3.4-5.0) 09/13/20 06:20 Globulin 2.0 g/dL (2.5-4.5) L 09/13/20 06:20 Albumin/Globulin Ratio 2.0 Ratio (1.1-2.1) 09/13/20 06:20 Carcinoembryonic Ag 7.9 ng/mL (0.0-3.0) H 09/05/20 00:02 Vitamin B12 922 pg/mL (193-986) 09/05/20 00:28 Folate 10.6 ng/mL (>8.6) 09/05/20 00:28 Specimen Type Catherized urine 09/04/20 18:45 Urine Color Yellow (YELLOW) 09/04/20 18:45 Urine Appearance Clear (CLEAR) 09/04/20 18:45 Urine pH 5.0 (5.0 - 8.0) 09/04/20 18:45 Ur Specific [place] 1.030 (1.000-1.030) 09/04/20 18:45 Urine Protein 4+ (NEGATIVE) 09/04/20 18:45 Urine Glucose (UA) Negative (NEGATIVE) 09/04/20 18:45 Urine Ketones Negative (NEGATIVE) 09/04/20 18:45 Urine Occult Blood Negative (NEGATIVE) 09/04/20 18:45 Urine Nitrite Negative (NEGATIVE) 09/04/20 18:45 Urine Bilirubin 2+ (NEGATIVE) 09/04/20 18:45 Urine Urobilinogen 1+ (NORMAL) 09/04/20 18:45 Ur Leukocyte Esterase 1+ (NEGATIVE) 09/04/20 18:45 Urine RBC 0-2 /HPF (0-3) 09/04/20 18:45 Urine WBC 3-5 /HPF (0-5) 09/04/20 18:45 Ur Squamous Epith Cells Few /HPF (NEGATIVE) 09/04/20 18:45 Amorphous Sediment 1+ /HPF (NEGATIVE) 09/04/20 18:45 Urine Bacteria 1+ /HPF (NEGATIVE) 09/04/20 18:45 Granular Casts Few /LPF (NEGATIVE) 09/04/20 18:45 Other Casts Few /LPF (NEGATIVE) 09/04/20 18:45 Ur Culture Indicated? No/not indicated 09/04/20 18:45 Stool Description 15g dark brown soft 09/09/20 02:10 Stl Occult Blood (IFOB) Positive (NEGATIVE) A 09/09/20 02:10 Urine Opiates Screen Negative (NEG=<300) 09/04/20 18:45 Urine Methadone Screen Negative (NEG=<300) 09/04/20 18:45 Ur Barbiturates Screen Negative (NEG=<200) 09/04/20 18:45 Ur Phencyclidine Scrn Negative (NEG=<25) 09/04/20 18:45 Ur Amphetamines Screen Negative (NEG=<1000) 09/04/20 18:45 U Benzodiazepines Scrn Positive (NEG=<200) A 09/04/20 18:45 Urine Cocaine Screen Negative (NEG=<300) 09/04/20 18:45 U Marijuana (THC) Screen Negative (NEG=<50) 09/04/20 18:45 SARS CoV-2 RNA Rapid ANGÉLICA Negative (NEGATIVE) 09/04/20 18:33 Tissue Pathology To follow 09/10/20 12:09 Blood Type A POSITIVE 09/13/20 09:09 Antibody Screen Negative 09/13/20 09:09 Crossmatch See Detail 09/13/20 09:09 - Assessment and Plan 1: pneumonia . renal failure . CHF. anemia . colonoscopy was cancelled because of her poor condition . same medical support as per Dr Brody .. - Problem Patient Problems: Patient Problems Bilateral pneumonia (Acute) J18.9 Congestive heart failure (CHF) (Acute) I50.9 Symptomatic anemia (Acute) D64.9 PAOD (peripheral arterial occlusive disease) (Acute) I77.9 Chronic kidney disease (CKD) (Acute) N18.9 Hyperglycemia (Acute) R73.9 Sinus bradycardia (Acute) R00.1
[2020-09-13] MEDS: ALBUMIN HUMAN 25%- 100 ML 100 ML IV SCH ×2 (14:32→21:46)
[2020-09-13 16:47] LABS: HEMATOCRIT 33.4 % (36.0-47.0); HEMOGLOBIN 10.5 g/dL (12.0-16.0)
[2020-09-13] MEDS: MIRALAX POWDER (1 DOSE 17 G) PO SCH (21:14)
[2020-09-14 06:29] LABS: BASOPHILS % (AUTO) 0.1 % (0.2-1.0); HEMATOCRIT 33.6 % (36.0-47.0); HEMOGLOBIN 10.5 g/dL (12.0-16.0); LYMPHOCYTES # (AUTO) 0.5 X10^3/uL (1.3-2.9); LYMPHOCYTES % (AUTO) 3.3 % (21.0-51.0); MEAN CORPUSCULAR HEMOGLOBIN 26.1 pg (27.0-34.0); MEAN CORPUSCULAR HGB CONC 31.4 g/dL (33.0-35.0); MEAN PLATELET VOLUME 8.2 fL (7.4-11.0); MONOCYTES # (AUTO) 1.1 x10^3/uL (0.3-0.8); MONOCYTES % (AUTO) 7.4 % (0.0-13.0); NEUTROPHILS # (AUTO) 13.2 x10^3/uL (2.2-4.8); NEUTROPHILS % (AUTO) 89.2 % (42.0-75.0); PLATELET COUNT 267 X10^3/uL (150.0-450.0); RED BLOOD COUNT 4.04 X10^6/uL (3.5-5.4)
--- NOTE | 2020-09-14 06:29 | RAD ---
HISTORYSOBSTUDYCHEST, 1 [id number]/01/2021FINDINGSThe trachea is midline. Right Port-A-Cath tip in right atrium. NG tube has been removed. Is the cardiac silhouette is mildly enlarged. Left pleural effusion, atelectasis and/or infiltrate within the lung base unchanged. There is blunting of the right costophrenic angle due to small effusion. Is. The lungs are clear without focal infiltrate or effusion. The bony thorax is unremarkable.IMPRESSIONLeft basilar pleural effusion, atelectasis and/or infiltrate, unchanged.New small right pleural effusionElectronically signed by: Riki Scott (Sep 14, 2020 06:27:25)
[2020-09-14 06:49] LABS: ALANINE AMINOTRANSFERASE 53 Units/L (12-78); ALBUMIN 3.5 g/dL (3.4-5.0); ALKALINE PHOSPHATASE 37 Units/L (46-116); ASPARTATE AMINO TRANSFERASE 108 Units/L (15-37); BLOOD UREA NITROGEN 71 mg/dL (7-18); CALCIUM 8.3 mg/dL (8.5-10.1); CARBON DIOXIDE 17.2 mmol/L (21-32); CHLORIDE 112 mmol/L (98-107); COR NA(FOR HYPERGLY) 146 mmol/L (136-145); CREATININE 3.67 mg/dL (0.55-1.02); SODIUM 146 mmol/L (136-145); TOTAL PROTEIN 5.8 g/dL (6.4-8.2); eGFR NON BLACK RACES 12 (>60)
[2020-09-14] MEDS: HEPARIN SODIUM INJ 5000 UNITS SC SCH ×3 (07:00→21:00)
[2020-09-14] MEDS: NS 1000 ML 1,000 ML IV SCH ×4 (07:02→20:31)
[2020-09-14 07:11] LABS: WHITE BLOOD COUNT 14.8 X10^3/uL (3.6-10.0)
[2020-09-14 07:12] LABS: ANISOCYTOSIS 1+; BAND NEUTROPHILS % 1 % (0-10); PLATELET MORPHOLOGY COMMENT NORMAL (NORMAL)
[2020-09-14 07:13] LABS: HYPOCHROMASIA SLIGHT
[2020-09-14] MEDS: SYNTHROID 125 mcg TAB PO SCH (07:50)
[2020-09-14] MEDS: LASIX IVP SCH ×2 (08:36→17:07)
[2020-09-14] MEDS: ALBUMIN HUMAN 25%- 100 ML 100 ML IV SCH ×2 (08:39→20:30)
[2020-09-14] MEDS: PROVENTIL NEB TX 0.083% 2.5MG/ 3ML NEB SCH ×4 (09:00→21:16)
[2020-09-14] MEDS: ZESTRIL TAB 5 MG PO SCH (12:12)
[2020-09-14] MEDS: PLAVIX PO SCH (12:13)
[2020-09-14] MEDS: VSL#3 PO SCH (12:22)
[2020-09-14] MEDS: ZOLOFT PO SCH (12:23)
[2020-09-14] MEDS: MIRALAX POWDER (1 DOSE 17 G) PO SCH (20:32)
[2020-09-15] MEDS: NS 1000 ML 1,000 ML IV SCH ×3 (02:11→08:54)
[2020-09-15] MEDS: MIRALAX POWDER (1 DOSE 17 G) PO SCH (04:43)
--- NOTE | 2020-09-15 06:05 | RAD ---
HISTORYShortness of breathSTUDYChest AP [id number]/02/2021FINDINGSPatient is rotated to the left. There is a right-sided port prese nt. The heart remains enlarged. Mild pulmonary venous congestion is present. The right lung is clear. A small right pleural effusion is likely present. There is no significant change in the previously d escribed left pleural effusion. Left upper lung field is clear. Increased density retrocardiac area l eft lower lobe obscuring left hemidiaphragm may be entirely due to the left pleural effusion however underlying infiltrate or atelectasis is not excluded. Bony thorax is unremarkable.IMPRESSIONNo change cardiomegaly with pulmonary venous congestionNo change left pleural effusionNo change persistent inc reased density retrocardiac area of the left lower lobe obscuring left hemidiaphragm and likely due t o the left pleural effusion however underlying infiltrate or atelectasis cannot be excluded.Suspect s mall right pleural effusionElectronically signed by: GERALDO RODRIGUEZ (Sep 15, 2020 06:04:09)
[2020-09-15] MEDS: HEPARIN SODIUM INJ 5000 UNITS SC SCH ×2 (06:11→13:54)
[2020-09-15 06:17] LABS: BASOPHILS % (AUTO) 0.3 % (0.2-1.0); EOSINOPHILS % (AUTO) 0.3 % (0.9-2.9); HEMATOCRIT 33.2 % (36.0-47.0); HEMOGLOBIN 10.6 g/dL (12.0-16.0); LYMPHOCYTES # (AUTO) 0.5 X10^3/uL (1.3-2.9); LYMPHOCYTES % (AUTO) 3.9 % (21.0-51.0); MEAN CORPUSCULAR HEMOGLOBIN 26.4 pg (27.0-34.0); MEAN CORPUSCULAR HGB CONC 31.9 g/dL (33.0-35.0); MEAN CORPUSCULAR VOLUME 82.8 fL (80.0-100.0); MEAN PLATELET VOLUME 8.3 fL (7.4-11.0); MONOCYTES # (AUTO) 0.8 x10^3/uL (0.3-0.8); MONOCYTES % (AUTO) 6.5 % (0.0-13.0); NEUTROPHILS # (AUTO) 10.5 x10^3/uL (2.2-4.8); PLATELET COUNT 277 X10^3/uL (150.0-450.0); RED BLOOD COUNT 4.01 X10^6/uL (3.5-5.4); RED CELL DISTRIBUTION WIDTH 22.7 % (11.6-16.5)
[2020-09-15 06:30] LABS: PARATHYROID HORMONE INT 138 pg/mL (15-65)
[2020-09-15 06:45] LABS: ANISOCYTOSIS 2+; BAND NEUTROPHILS % 4 % (0-10); PLATELET MORPHOLOGY COMMENT NORMAL (NORMAL); WHITE BLOOD COUNT 11.8 X10^3/uL (3.6-10.0)
[2020-09-15 06:46] LABS: HYPOCHROMASIA SLIGHT
[2020-09-15 06:47] LABS: ALANINE AMINOTRANSFERASE 76 Units/L (12-78); ALBUMIN 3.4 g/dL (3.4-5.0); ALKALINE PHOSPHATASE 40 Units/L (46-116); ASPARTATE AMINO TRANSFERASE 145 Units/L (15-37); BLOOD UREA NITROGEN 76 mg/dL (7-18); CALCIUM 8.5 mg/dL (8.5-10.1); CARBON DIOXIDE 16.2 mmol/L (21-32); CHLORIDE 113 mmol/L (98-107); CREATININE 3.67 mg/dL (0.55-1.02); SODIUM 147 mmol/L (136-145); TOTAL PROTEIN 5.7 g/dL (6.4-8.2); eGFR NON BLACK RACES 12 (>60)
[2020-09-15] MEDS ORDERED: TYGACIL 50 MG VIAL 100 MG in NS 100 ML IV 100 ML IV ONE (08:47)
[2020-09-15] MEDS: LASIX IVP SCH (08:52)
[2020-09-15] MEDS: ALBUMIN HUMAN 25%- 100 ML 100 ML IV SCH (08:52)
[2020-09-15] MEDS: SYNTHROID 125 mcg TAB PO SCH (08:52)
[2020-09-15] MEDS: PLAVIX PO SCH (08:52)
[2020-09-15] MEDS: ZESTRIL TAB 5 MG PO SCH (08:53)
[2020-09-15] MEDS: VSL#3 PO SCH (08:53)
[2020-09-15] MEDS: PROVENTIL NEB TX 0.083% 2.5MG/ 3ML NEB SCH ×2 (08:55→13:15)
[2020-09-15] MEDS: ZOLOFT PO SCH (09:09)
[2020-09-15 16:20] VITALS: BP 177/83
[2020-09-15] MEDS ORDERED: TYGACIL 50 MG VIAL 50 MG in NS 100 ML IV 100 ML IV SCH (21:00)
--- NOTE | 2020-10-26 14:06 | PCM.PROG ---
Progress Note - Progress Note for Day of Date of Exam: 09/11/20 - Subjective Subjective: WAS ADMITTED ON 09/04 FOR TREATMENT OF BILATERAL PNEUMONIA, CHF, PAD, AND ANEMIA. SHE HAS RECEIVED A TOTAL OF TWO UNITS OF PRBC SINCE ADMISSION. SHE HAS A PMH OF RENAL ARTERY STENOSIS WITH ACCELERATED HTN STATUS POST STENTING, HYPOTHYROIDISM, ADJUSTMENT DISORDER, HYPERLIPIDEMIA, CONS TIPATION, DIABETES MELLITUS, CHRONIC PAIN, CAD, PAD, ANXIETY, AND ANEMIA. SHE HAS HAD AN APPENDECTOMY, BOWEL RESECTION, CHOLECYSTECTOMY, AND ANGIOPLASTIES OF ARTERIES IN THE PAST. SHE HAS BEEN RECEIVING DIURETICSFOR CHF AND IV ANTIBIOTICS FOR THE PNEUMONIA. WAS CONSULTED DUE TO ANEMIA. SINCE RECEIVING BLOOD, HER HGB HAS REMAINED STABLE. HER BUN WAS 66 AND CREATININE 3.72 YESTERDAY. TOOK PATIENT TO THE OR FOR AN EGD YESTERDAY. EGD REVEALED EROSIVE GASTRITIS, NO ACTIVE BLEEDING. TODAY, SHE IS LYING IN BED WITH EYES CLOSED ON MORNING ROUNDS. SHE AWAKENS TO VERBAL STIMULI. SHE REPORTS WEAKNESS BUT DENIES OTHER COMPLAINTS. HER VITALS THIS MORNING ARE: 98.1-102-20-98%-124/66. LABS WERE OBTAINED. ABNORMAL LAB VALUES INCLUDE THE FOLLOWING: RBC 3.35, HGB 8.8, HCT 27.5, CHLORIDE 108, CARBON DIOXIDE 18.4, BUN 64, CREATININE 3.57, GLUCOSE 106, ALK PHOS 31, TOTAL PROTEIN 2.4. CHEST XRAY REVEALED: Stable cardiomegaly. Persistent left basal opacity consistent with pneumonia/atelectasis and fluid. Increasing diffuse opacification of the right chest is suggestive of increasing airspace disease right lung although a layering right pleural effusion may contribute to this appearance. WE WILL CONTINUE WITH IV FLUIDS AT 75 ML/HR, IV ANTIBIOTICS, HOME MEDS, AND CURRENT PLAN OF CARE TODAY. OTHERWISE, WE PLAN TO FOLLOW UP WITH AM LABS AND CONTINUE TO MONITOR. TIME SPENT ON CLINICAL ASSESSMENT, REVIEWING LABS AND IMAGING, DECISION MAKING, AND DOCUMENTATION GREATER THAN 45 MINUTES. - Past Medical Family Social History Past Med/Fam/Surg Hx: No changes since H&P Allergies: Allergies acetaminophen [From Darvocet-N] Allergy (Verified 08/25/20 23:28) codeine Allergy (Verified 08/25/20 23:28) propoxyphene [From Darvocet-N] Allergy (Verified 08/25/20 23:28) - Review of Systems ROS: No change since H&P - Vital Signs and I&O's Vital Signs: Temperature 97.4 F Pulse Rate [Left] 113 Pulse Rate 105 Respiratory Rate 14 Blood Pressure [Right Arm] 177/83 Blood Pressure [Right Calf] 116/78 Blood Pressure [Left Calf] 125/86 Blood Pressure [Left Arm] 108/69 Blood Pressure 99/48 O2 Sat by Pulse Oximetry 99 - Physical Exam Oriented: Person Eyes: Normal Ear: Normal Nose: Normal Throat: Normal Respiratory: Generalized, Diminished Cardiovascular: Normal : Normal Auscultation: Bowel Sounds: Normal Palpation: Normal Tenderness: Normal Skin: Normal Musculoskeletal: Normal Psychiatric: Normal Mood Description: Calm Affect: Normal Speech Pattern: Unclear - Laboratory and Diagnostics Result Diagrams: 09/15/20 05:45 09/15/20 05:45 Labs: Laboratory WBC 11.8 X10^3/uL (3.6-10.0) H 09/15/20 05:45 RBC 4.01 X10^6/uL (3.5-5.4) 09/15/20 05:45 Hgb 10.6 g/dL (12.0-16.0) L 09/15/20 05:45 Hct 33.2 % (36.0-47.0) L 09/15/20 05:45 MCV 82.8 fL (80.0-100.0) 09/15/20 05:45 MCH 26.4 pg (27.0-34.0) L 09/15/20 05:45 MCHC 31.9 g/dL (33.0-35.0) L 09/15/20 05:45 RDW 22.7 % (11.6-16.5) H 09/15/20 05:45 Plt Count 277 X10^3/uL (150.0-450.0) 09/15/20 05:45 Plt Count Comment Adequate (ADEQUATE) 09/15/20 05:45 MPV 8.3 fL (7.4-11.0) 09/15/20 05:45 Neut % (Auto) 89.0 % (42.0-75.0) H 09/15/20 05:45 Lymph % (Auto) 3.9 % (21.0-51.0) L 09/15/20 05:45 [place] % (Auto) 6.5 % (0.0-13.0) 09/15/20 05:45 Eos % (Auto) 0.3 % (0.9-2.9) L 09/15/20 05:45 Baso % (Auto) 0.3 % (0.2-1.0) 09/15/20 05:45 Neut # (Auto) 10.5 x10^3/uL (2.2-4.8) H 09/15/20 05:45 Lymph # (Auto) 0.5 X10^3/uL (1.3-2.9) L 09/15/20 05:45 [place] # (Auto) 0.8 x10^3/uL (0.3-0.8) 09/15/20 05:45 Eos # (Auto) 0.0 x10^3/uL (0.0-0.2) 09/15/20 05:45 Baso # (Auto) 0.0 X10^3/uL (0.0-0.1) 09/15/20 05:45 Absolute Nucleated RBC 7.5 /100WBC 09/15/20 05:45 Total Counted 100 09/15/20 05:45 Neutrophils % (Manual) 84 % (39-76) H 09/15/20 05:45 Band Neutrophils % 4 % (0-10) 09/15/20 05:45 Lymphocytes % (Manual) 10 % (13-43) L 09/15/20 05:45 Monocytes % (Manual) 2 % (4-9) L 09/15/20 05:45 Eosinophils % (Manual) 1 % (0-6) 09/11/20 05:30 Nucleated RBCs 18 09/15/20 05:45 Plt Morphology Comment Normal (NORMAL) 09/15/20 05:45 RBC Morphology Abnormal (NORMAL) A 09/15/20 05:45 Hypochromasia Slight A 09/15/20 05:45 Anisocytosis 2+ A 09/15/20 05:45 Macrocytosis Slight A 09/13/20 06:20 PT 16.4 SECONDS (11.8-14.3) 09/04/20 17:03 INR Target Range - 09/04/20 17:03 INR 1.36 (0.8-1.3) H 09/04/20 17:03 APTT 37.5 SECONDS (22.9-36.5) H 09/04/20 17:03 PTT Comment - 09/04/20 17:03 D-Dimer 1.77 ug/ml (0.0-0.57) H* 09/04/20 17:03 Sodium 147 mmol/L (136-145) H 09/15/20 05:45 Corrected Sodium TNP 09/15/20 05:45 Potassium 3.4 mmol/L (3.5-5.1) L 09/15/20 05:45 Chloride 113 mmol/L (98-107) H 09/15/20 05:45 Carbon Dioxide 16.2 mmol/L (21-32) L 09/15/20 05:45 BUN 76 mg/dL (7-18) H 09/15/20 05:45 Creatinine 3.67 mg/dL (0.55-1.02) H 09/15/20 05:45 Est GFR (MDRD) Af Amer 15 (>60) L 09/15/20 05:45 Est GFR (MDRD) Non-Af 12 (>60) L 09/15/20 05:45 Glucose 109 mg/dL (65-99) H 09/15/20 05:45 POC Glucose (mg/dL) 81 mg/dL (65-99) 09/15/20 16:16 Lactic Acid 0.9 mmol/L (0.4-2.0) 09/05/20 07:45 Calcium 8.5 mg/dL (8.5-10.1) 09/15/20 05:45 Corrected Calcium TNP 09/15/20 05:45 Magnesium 2.3 mg/dL (1.7-2.9) 09/04/20 16:23 Iron 12 ug/dL (50-175) L 09/05/20 00:28 Transferrin 394 mg/dL (202-364) H 09/05/20 00:28 Ferritin 26 ng/mL (8-252) 09/05/20 00:28 Total Bilirubin 0.70 mg/dL (0.2-1.0) 09/15/20 05:45 AST 145 Units/L (15-37) H 09/15/20 05:45 ALT 76 Units/L (12-78) 09/15/20 05:45 Alkaline Phosphatase 40 Units/L (46-116) L 09/15/20 05:45 B-Natriuretic Peptide 4360 pg/mL (0-79) H* 09/04/20 16:23 Total Protein 5.7 g/dL (6.4-8.2) L 09/15/20 05:45 Albumin 3.4 g/dL (3.4-5.0) 09/15/20 05:45 Globulin 2.3 g/dL (2.5-4.5) L 09/15/20 05:45 Albumin/Globulin Ratio 1.5 Ratio (1.1-2.1) 09/15/20 05:45 Carcinoembryonic Ag 7.9 ng/mL (0.0-3.0) H 09/05/20 00:02 Vitamin B12 922 pg/mL (193-986) 09/05/20 00:28 Vitamin D 25-Hydroxy < 4 ng/mL (30-80) L 09/13/20 09:09 Folate 10.6 ng/mL (>8.6) 09/05/20 00:28 PTH Intact 138 pg/mL (15-65) H 09/13/20 09:09 Calcium (PTH Intact) 8.4 mg/dL 09/13/20 09:09 Specimen Type Catherized urine 09/04/20 18:45 Urine Color Yellow (YELLOW) 09/04/20 18:45 Urine Appearance Clear (CLEAR) 09/04/20 18:45 Urine pH 5.0 (5.0 - 8.0) 09/04/20 18:45 Ur Specific [place] 1.030 (1.000-1.030) 09/04/20 18:45 Urine Protein 4+ (NEGATIVE) 09/04/20 18:45 Urine Glucose (UA) Negative (NEGATIVE) 09/04/20 18:45 Urine Ketones Negative (NEGATIVE) 09/04/20 18:45 Urine Occult Blood Negative (NEGATIVE) 09/04/20 18:45 Urine Nitrite Negative (NEGATIVE) 09/04/20 18:45 Urine Bilirubin 2+ (NEGATIVE) 09/04/20 18:45 Urine Urobilinogen 1+ (NORMAL) 09/04/20 18:45 Ur Leukocyte Esterase 1+ (NEGATIVE) 09/04/20 18:45 Urine RBC 0-2 /HPF (0-3) 09/04/20 18:45 Urine WBC 3-5 /HPF (0-5) 09/04/20 18:45 Ur Squamous Epith Cells Few /HPF (NEGATIVE) 09/04/20 18:45 Amorphous Sediment 1+ /HPF (NEGATIVE) 09/04/20 18:45 Urine Bacteria 1+ /HPF (NEGATIVE) 09/04/20 18:45 Granular Casts Few /LPF (NEGATIVE) 09/04/20 18:45 Other Casts Few /LPF (NEGATIVE) 09/04/20 18:45 Ur Culture Indicated? No/not indicated 09/04/20 18:45 Stool Description 15g dark brown soft 09/09/20 02:10 Stl Occult Blood (IFOB) Positive (NEGATIVE) A 09/09/20 02:10 Urine Opiates Screen Negative (NEG=<300) 09/04/20 18:45 Urine Methadone Screen Negative (NEG=<300) 09/04/20 18:45 Ur Barbiturates Screen Negative (NEG=<200) 09/04/20 18:45 Ur Phencyclidine Scrn Negative (NEG=<25) 09/04/20 18:45 Ur Amphetamines Screen Negative (NEG=<1000) 09/04/20 18:45 U Benzodiazepines Scrn Positive (NEG=<200) A 09/04/20 18:45 Urine Cocaine Screen Negative (NEG=<300) 09/04/20 18:45 U Marijuana (THC) Screen Negative (NEG=<50) 09/04/20 18:45 SARS CoV-2 RNA Rapid ANGÉLICA Negative (NEGATIVE) 09/04/20 18:33 Tissue Pathology To follow 09/10/20 12:09 Blood Type A POSITIVE 09/13/20 09:09 Antibody Screen Negative 09/13/20 09:09 Crossmatch See Detail 09/13/20 09:09 - Plan (1) Congestive heart failure (CHF) Status: Acute Qualifiers: Heart failure type: unspecified Heart failure chronicity: acute on chronic Qualified Code(s): I50.9 - Heart failure, unspecified (2) Bilateral pneumonia Status: Acute Qualifiers: Pneumonia type: due to unspecified organism Lung location: unspecified part of lung Qualified Code(s): J18.9 - Pneumonia, unspecified organism (3) Symptomatic anemia Status: Acute
--- NOTE | 2020-10-26 14:13 | PCM.PROG ---
Progress Note - Progress Note for Day of Date of Exam: 09/12/20 - Subjective Subjective: WAS ADMITTED ON 09/04 FOR TREATMENT OF BILATERAL PNEUMONIA, CHF, PAD, AND ANEMIA. SHE HAS RECEIVED A TOTAL OF TWO UNITS OF PRBC SINCE ADMISSION. SHE HAS A PMH OF RENAL ARTERY STENOSIS WITH ACCELERATED HTN STATUS POST STENTING, HYPOTHYROIDISM, ADJUSTMENT DISORDER, HYPERLIPIDEMIA, CONS TIPATION, DIABETES MELLITUS, CHRONIC PAIN, CAD, PAD, ANXIETY, AND ANEMIA. SHE HAS HAD AN APPENDECTOMY, BOWEL RESECTION, CHOLECYSTECTOMY, AND ANGIOPLASTIES OF ARTERIES IN THE PAST. SHE HAS BEEN RECEIVING DIURETICS FOR CHF AND IV ANTIBIOTICS FOR THE PNEUMONIA. WAS CONSULTED DUE TO ANEMIA. SINCE RECEIVING BLOOD, HER HGB HAS REMAINED STABLE. HER BUN WAS 64 AND CREATININE 3.57 YESTERDAY. TOOK PATIENT TO THE OR FOR AN EGD ON SUNDAY. EGD REVEALED EROSIVE GASTRITIS, NO ACTIVE BLEEDING. TODAY, SHE IS LYING IN BED WITH EYES CLOSED ON MORNING ROUNDS. SHE AWAKENS TO VERBAL STIMULI. SHE REPORTS WEAKNESS BUT DENIES OTHER COMPLAINTS. HER VITALS THIS MORNING ARE: 98.7-108-14-98%-130/63 . LABS WERE OBTAINED. ABNORMAL LAB VALUES INCLUDE THE FOLLOWING: RBC 3.14, HGB 8.2, HCT 26.0, CHLORIDE 110, CARBON DIOXIDE 15.7, BUN 66, CREATININE 3.53, GLUCOSE 103, CALCIUM 8.3, ALK PHOS 26, TOTAL PROTEIN 5.9, GLOBULIN 2.2. CHEST XRAY REVEALED: Similar cardiomegaly. There is no change in appearance of the diffuse opacification of the lungs consistent with airspace disease and pleural fluid. The hilar structures are significantly obscured. No extrapulmonary air is identified. WE WILL CONTINUE WITH IV FLUIDS AT 75 ML/HR, IV ANTIBIOTICS, HOME MEDS, AND CURRENT PLAN OF CARE TODAY. OTHERWISE, WE PLAN TO FOLLOW UP WITH AM LABS AND CONTINUE TO MONITOR. TIME SPENT ON CLINICAL ASSESSMENT, REVIEWING LABS AND IMAGING, DECISION MAKING, AND DOCUMENTATION GREATER THAN 45 MINUTES. - Past Medical Family Social History Past Med/Fam/Surg Hx: No changes since H&P Allergies: Allergies acetaminophen [From Darvocet-N] Allergy (Verified 08/25/20 23:28) codeine Allergy (Verified 08/25/20 23:28) propoxyphene [From Darvocet-N] Allergy (Verified 08/25/20 23:28) - Review of Systems ROS: No change since H&P - Vital Signs and I&O's Vital Signs: Temperature 97.4 F Pulse Rate [Left] 113 Pulse Rate 105 Respiratory Rate 14 Blood Pressure [Right Arm] 177/83 Blood Pressure [Right Calf] 116/78 Blood Pressure [Left Calf] 125/86 Blood Pressure [Left Arm] 108/69 Blood Pressure 99/48 O2 Sat by Pulse Oximetry 99 - Physical Exam Oriented: Person Eyes: Normal Ear: Normal Nose: Normal Throat: Normal Respiratory: Generalized, Diminished Cardiovascular: Normal : Normal Auscultation: Bowel Sounds: Normal Tenderness: Normal Skin: Normal Musculoskeletal: Normal Psychiatric: Normal Mood Description: Calm Affect: Normal Speech Pattern: Unclear - Laboratory and Diagnostics Result Diagrams: 09/15/20 05:45 09/15/20 05:45 Labs: Laboratory WBC 11.8 X10^3/uL (3.6-10.0) H 09/15/20 05:45 RBC 4.01 X10^6/uL (3.5-5.4) 09/15/20 05:45 Hgb 10.6 g/dL (12.0-16.0) L 09/15/20 05:45 Hct 33.2 % (36.0-47.0) L 09/15/20 05:45 MCV 82.8 fL (80.0-100.0) 09/15/20 05:45 MCH 26.4 pg (27.0-34.0) L 09/15/20 05:45 MCHC 31.9 g/dL (33.0-35.0) L 09/15/20 05:45 RDW 22.7 % (11.6-16.5) H 09/15/20 05:45 Plt Count 277 X10^3/uL (150.0-450.0) 09/15/20 05:45 Plt Count Comment Adequate (ADEQUATE) 09/15/20 05:45 MPV 8.3 fL (7.4-11.0) 09/15/20 05:45 Neut % (Auto) 89.0 % (42.0-75.0) H 09/15/20 05:45 Lymph % (Auto) 3.9 % (21.0-51.0) L 09/15/20 05:45 [place] % (Auto) 6.5 % (0.0-13.0) 09/15/20 05:45 Eos % (Auto) 0.3 % (0.9-2.9) L 09/15/20 05:45 Baso % (Auto) 0.3 % (0.2-1.0) 09/15/20 05:45 Neut # (Auto) 10.5 x10^3/uL (2.2-4.8) H 09/15/20 05:45 Lymph # (Auto) 0.5 X10^3/uL (1.3-2.9) L 09/15/20 05:45 [place] # (Auto) 0.8 x10^3/uL (0.3-0.8) 09/15/20 05:45 Eos # (Auto) 0.0 x10^3/uL (0.0-0.2) 09/15/20 05:45 Baso # (Auto) 0.0 X10^3/uL (0.0-0.1) 09/15/20 05:45 Absolute Nucleated RBC 7.5 /100WBC 09/15/20 05:45 Total Counted 100 09/15/20 05:45 Neutrophils % (Manual) 84 % (39-76) H 09/15/20 05:45 Band Neutrophils % 4 % (0-10) 09/15/20 05:45 Lymphocytes % (Manual) 10 % (13-43) L 09/15/20 05:45 Monocytes % (Manual) 2 % (4-9) L 09/15/20 05:45 Eosinophils % (Manual) 1 % (0-6) 09/11/20 05:30 Nucleated RBCs 18 09/15/20 05:45 Plt Morphology Comment Normal (NORMAL) 09/15/20 05:45 RBC Morphology Abnormal (NORMAL) A 09/15/20 05:45 Hypochromasia Slight A 09/15/20 05:45 Anisocytosis 2+ A 09/15/20 05:45 Macrocytosis Slight A 09/13/20 06:20 PT 16.4 SECONDS (11.8-14.3) 09/04/20 17:03 INR Target Range - 09/04/20 17:03 INR 1.36 (0.8-1.3) H 09/04/20 17:03 APTT 37.5 SECONDS (22.9-36.5) H 09/04/20 17:03 PTT Comment - 09/04/20 17:03 D-Dimer 1.77 ug/ml (0.0-0.57) H* 09/04/20 17:03 Sodium 147 mmol/L (136-145) H 09/15/20 05:45 Corrected Sodium TNP 09/15/20 05:45 Potassium 3.4 mmol/L (3.5-5.1) L 09/15/20 05:45 Chloride 113 mmol/L (98-107) H 09/15/20 05:45 Carbon Dioxide 16.2 mmol/L (21-32) L 09/15/20 05:45 BUN 76 mg/dL (7-18) H 09/15/20 05:45 Creatinine 3.67 mg/dL (0.55-1.02) H 09/15/20 05:45 Est GFR (MDRD) Af Amer 15 (>60) L 09/15/20 05:45 Est GFR (MDRD) Non-Af 12 (>60) L 09/15/20 05:45 Glucose 109 mg/dL (65-99) H 09/15/20 05:45 POC Glucose (mg/dL) 81 mg/dL (65-99) 09/15/20 16:16 Lactic Acid 0.9 mmol/L (0.4-2.0) 09/05/20 07:45 Calcium 8.5 mg/dL (8.5-10.1) 09/15/20 05:45 Corrected Calcium TNP 09/15/20 05:45 Magnesium 2.3 mg/dL (1.7-2.9) 09/04/20 16:23 Iron 12 ug/dL (50-175) L 09/05/20 00:28 Transferrin 394 mg/dL (202-364) H 09/05/20 00:28 Ferritin 26 ng/mL (8-252) 09/05/20 00:28 Total Bilirubin 0.70 mg/dL (0.2-1.0) 09/15/20 05:45 AST 145 Units/L (15-37) H 09/15/20 05:45 ALT 76 Units/L (12-78) 09/15/20 05:45 Alkaline Phosphatase 40 Units/L (46-116) L 09/15/20 05:45 B-Natriuretic Peptide 4360 pg/mL (0-79) H* 09/04/20 16:23 Total Protein 5.7 g/dL (6.4-8.2) L 09/15/20 05:45 Albumin 3.4 g/dL (3.4-5.0) 09/15/20 05:45 Globulin 2.3 g/dL (2.5-4.5) L 09/15/20 05:45 Albumin/Globulin Ratio 1.5 Ratio (1.1-2.1) 09/15/20 05:45 Carcinoembryonic Ag 7.9 ng/mL (0.0-3.0) H 09/05/20 00:02 Vitamin B12 922 pg/mL (193-986) 09/05/20 00:28 Vitamin D 25-Hydroxy < 4 ng/mL (30-80) L 09/13/20 09:09 Folate 10.6 ng/mL (>8.6) 09/05/20 00:28 PTH Intact 138 pg/mL (15-65) H 09/13/20 09:09 Calcium (PTH Intact) 8.4 mg/dL 09/13/20 09:09 Specimen Type Catherized urine 09/04/20 18:45 Urine Color Yellow (YELLOW) 09/04/20 18:45 Urine Appearance Clear (CLEAR) 09/04/20 18:45 Urine pH 5.0 (5.0 - 8.0) 09/04/20 18:45 Ur Specific [place] 1.030 (1.000-1.030) 09/04/20 18:45 Urine Protein 4+ (NEGATIVE) 09/04/20 18:45 Urine Glucose (UA) Negative (NEGATIVE) 09/04/20 18:45 Urine Ketones Negative (NEGATIVE) 09/04/20 18:45 Urine Occult Blood Negative (NEGATIVE) 09/04/20 18:45 Urine Nitrite Negative (NEGATIVE) 09/04/20 18:45 Urine Bilirubin 2+ (NEGATIVE) 09/04/20 18:45 Urine Urobilinogen 1+ (NORMAL) 09/04/20 18:45 Ur Leukocyte Esterase 1+ (NEGATIVE) 09/04/20 18:45 Urine RBC 0-2 /HPF (0-3) 09/04/20 18:45 Urine WBC 3-5 /HPF (0-5) 09/04/20 18:45 Ur Squamous Epith Cells Few /HPF (NEGATIVE) 09/04/20 18:45 Amorphous Sediment 1+ /HPF (NEGATIVE) 09/04/20 18:45 Urine Bacteria 1+ /HPF (NEGATIVE) 09/04/20 18:45 Granular Casts Few /LPF (NEGATIVE) 09/04/20 18:45 Other Casts Few /LPF (NEGATIVE) 09/04/20 18:45 Ur Culture Indicated? No/not indicated 09/04/20 18:45 Stool Description 15g dark brown soft 09/09/20 02:10 Stl Occult Blood (IFOB) Positive (NEGATIVE) A 09/09/20 02:10 Urine Opiates Screen Negative (NEG=<300) 09/04/20 18:45 Urine Methadone Screen Negative (NEG=<300) 09/04/20 18:45 Ur Barbiturates Screen Negative (NEG=<200) 09/04/20 18:45 Ur Phencyclidine Scrn Negative (NEG=<25) 09/04/20 18:45 Ur Amphetamines Screen Negative (NEG=<1000) 09/04/20 18:45 U Benzodiazepines Scrn Positive (NEG=<200) A 09/04/20 18:45 Urine Cocaine Screen Negative (NEG=<300) 09/04/20 18:45 U Marijuana (THC) Screen Negative (NEG=<50) 09/04/20 18:45 SARS CoV-2 RNA Rapid ANGÉLICA Negative (NEGATIVE) 09/04/20 18:33 Tissue Pathology To follow 09/10/20 12:09 Blood Type A POSITIVE 09/13/20 09:09 Antibody Screen Negative 09/13/20 09:09 Crossmatch See Detail 09/13/20 09:09 - Plan (1) Congestive heart failure (CHF) Status: Acute Qualifiers: Heart failure type: unspecified Heart failure chronicity: acute on chronic Qualified Code(s): I50.9 - Heart failure, unspecified (2) Bilateral pneumonia Status: Acute Qualifiers: Pneumonia type: due to unspecified organism Lung location: unspecified part of lung Qualified Code(s): J18.9 - Pneumonia, unspecified organism (3) Symptomatic anemia Status: Acute
== END 2020-09-15 16:40 | disposition short-term general hospital (02) | DRG 194 ==
LOC: ER 16:06 → MED/SURG 20:13
PROVIDERS: ADMIT Family Medicine; ATTEND Obstetrics & Gynecology Obstetrics
DX: Z20.822 Contact with and (suspected) exposure to COVID-19; E11.65 Type 2 diabetes mellitus with hyperglycemia; Z66 Do not resuscitate; R94.31 Abnormal electrocardiogram [ECG] [EKG]; I77.9 Disorder of arteries and arterioles, unspecified; J18.8 Other pneumonia, unspecified organism; K29.00 Acute gastritis without bleeding; F41.8 Other specified anxiety disorders; D50.8 Other iron deficiency anemias; I50.9 Heart failure, unspecified; R06.02 Shortness of breath; Z79.899 Other long term (current) drug therapy; R41.82 Altered mental status, unspecified; I25.10 Atherosclerotic heart disease of native coronary artery without angina pectoris; N17.8 Other acute kidney failure; N18.30 Chronic kidney disease, stage 3 unspecified